=== PATIENT | female | born 1980 | race Caucasian/White ===

== ENCOUNTER → 2021-03-16 14:06 | Outpatient (BNVA) | payer MEDICARE, MEDICAID, SELFPAY | PROVIDERS: PCP Internal Medicine | DX: Z13.89 Encounter for screening for other disorder (principal) | CPT/HCPCS: Q3014 ==

== ENCOUNTER → 2021-09-13 11:46 | Outpatient (BNVA) | payer MEDICARE, MEDICAID, SELFPAY | PROVIDERS: PCP Internal Medicine | DX: R32 Unspecified urinary incontinence (principal) | CPT/HCPCS: Q3014 ==

== ENCOUNTER 2021-09-19 06:09 | Day surgery (SDC) | payer MEDICARE, MEDICAID, SELFPAY ==
--- NOTE | 2021-09-14 14:20 | P.CONAN_ITS ---
Documented by User: Marizol Kumar NP 09/14/21 14:21 HPI - Anesthesia Eval Consult details Narrative: 40yo F for Cystoscopy Botox Injection Last 12/2018 with MAC [facility] Active Problems Active Problems: All Active Problems (Updated 08/01/21 @ 11:32 by Dawn Suazo RN) Urinary incontinence (Acute) Past Medical History Medical History Asthma Ttjwivs-Rddzz-Hsuis disease COVID-19 vaccine series completed Diabetes Hypotonic bladder Kyphosis Scoliosis Status post insertion of nerve stimulator Wheelchair bound Surgical History Surgical History History of pubovaginal sling History of surgery History of surgery Hx of arthroscopy of knee Hx of cystoscopy Hx of hemorrhoidectomy Hx of tonsillectomy Social History Social History Are you a primary child care giver to a significant other at home: Yes (12 y.o. daughter) Do you presently have visiting nurse or other home services: No Patient Tobacco Use Status: Former Tobacco user Quit Date: 2009 Tobacco use type: Cigarette Use of substances other than those prescribed or required for medical reasons: No Are you DNR?: No Advance Directives: No Advance Directives Information Provided: Yes Recently lost weight without trying: No Nutrition Risks: No Nutritional Risk Meds Allergies Allergy/AdvReac Type Severity Reaction Status Date / Time naproxen [NAPROXEN] Allergy Intermediate ASTHMA Verified 09/13/21 11:49 Home Medications Medication Instructions Recorded Confirmed Last Taken Type fluticasone 1 inh INHALATION 08/01/21 Unknown History propionate 250 BID PRN mcg/actuation blister powder for inhalation (Flovent Diskus) metformin 500 mg 500 mg PO BID 08/01/21 Unknown History tablet multivitamin 1 tab PO DAILY 08/01/21 Unknown History solifenacin 10 mg 10 mg PO BID 08/01/21 09/19/21 History tablet albuterol sulfate 0 mcg INHALATION 09/13/21 Unknown History 90 mcg/actuation aerosol inhaler loratadine 10 mg 10 mg PO DAILY 09/13/21 Unknown History tablet omeprazole 20 mg 20 mg PO DAILY 09/13/21 Unknown History capsule,delayed release Exam Exam Date and Time: September 14, 2021 1420 Assessment and Plan Assessment Anesthesia Assessment: Chart Reviewed Documented by User: Catarino Frank 09/19/21 09:13 [facility] Past Medical History Medical History Asthma Hjczquj-Fusqw-Xpjzj disease COVID-19 vaccine series completed Diabetes Hypotonic bladder Kyphosis Scoliosis Status post insertion of nerve stimulator Wheelchair bound Functional capacity: wheelchair bound Family History Family history of problems with anesthesia: No Surgical History Surgical History History of pubovaginal sling History of surgery History of surgery Hx of arthroscopy of knee Hx of cystoscopy Hx of hemorrhoidectomy Hx of tonsillectomy History of Problems with Anesthesia: No Social History Social History Are you a primary child care giver to a significant other at home: Yes (12 y.o. daughter) Do you presently have visiting nurse or other home services: No Patient Tobacco Use Status: Former Tobacco user Quit Date: 2009 Tobacco use type: Cigarette Use of substances other than those prescribed or required for medical reasons: No Are you DNR?: No Advance Directives: No Advance Directives Information Provided: Yes Recently lost weight without trying: No Nutrition Risks: No Nutritional Risk Meds Allergies Allergy/AdvReac Type Severity Reaction Status Date / Time naproxen [NAPROXEN] Allergy Intermediate ASTHMA Verified 09/13/21 11:49 Home Medications Medication Instructions Recorded Confirmed Last Taken Type fluticasone 1 inh INHALATION 08/01/21 Unknown History propionate 250 BID PRN mcg/actuation blister powder for inhalation (Flovent Diskus) metformin 500 mg 500 mg PO BID 08/01/21 Unknown History tablet multivitamin 1 tab PO DAILY 08/01/21 Unknown History solifenacin 10 mg 10 mg PO BID 08/01/21 09/19/21 History tablet albuterol sulfate 0 mcg INHALATION 09/13/21 Unknown History 90 mcg/actuation aerosol inhaler loratadine 10 mg 10 mg PO DAILY 09/13/21 Unknown History tablet omeprazole 20 mg 20 mg PO DAILY 09/13/21 Unknown History capsule,delayed release Exam Airway Mallampati Class: II Neck ROM: Full Loose/Missing/Broken Teeth: Yes Heart: rrr Lungs: bl breath sounds Assessment and Plan Final Anesthetic Review Family History of Problems with Anesthesia: No History of Problems with Anesthesia: No NPO: Yes ASA Class: III Final Preanesthetic Review: Ann Marie Risks/Benef Reviewed Patient Risk: High Procedure Risk: Intermediate Anesthetic Plan Anesthetic Plan: MAC: Disposition: Standard PACU
[2021-09-19 06:16] VITALS: BMI 34.7
[2021-09-19 06:26] LABS: Glucose, Whole Blood 149 mg/dL (60-115)
[2021-09-19 06:31] VITALS: BMI 34.4
[2021-09-19 06:37] VITALS: BP 123/73; PULSE 81; RESP 16; TEMP 36.1; O2SAT 95
[2021-09-19] MEDS: Lactated Ringers 1,000 ML 100 ML IVCONT (06:46)
[2021-09-19 06:59] LABS: UPreg QC Valid YES; Urine Pregnancy NEGATIVE (NEGATIVE)
--- NOTE | 2021-09-19 07:32 | MHC.SHP ---
Pre-Procedural Eval Section A Date of Service: 09/19/21 The patient is an INPATIENT: No Changes since office visit: No Cold of Flu in the past 2 weeks, No New Medical Problems, No Changes in Medication and No Patient answered all questions The History & Physical has been completed within 30 days and I have reviewed it.: Yes Section B Chief Complaint: urinary incontinence Details of Present Illness: Background of chacot-Johana tooth disease. Prior Botox injection with success Relevant Family History (Specify if Yes): No Relevant Social History: None Present Medications: see Short Stay Collaborative assessment Medical History: Significant History History of Previous Operations: Relevant previous surgery/procedure and date(s) Allergies: Allergies Allergy/AdvReac Type Severity Reaction Status Date / Time naproxen [NAPROXEN] Allergy Intermediate ASTHMA Verified 09/13/21 11:49 Review of Systems Sugical H&P ROS: Negative: Constitution, Cardiovascular, Respiratory, Neurological, Psychiatric, Hem-Onc, Allergic/Immunologic, Gastrointestinal, Genitourinary, Musculoskeletal, Integumentary, Endocrine and Eyes/Ears/Nose/Throat Exam Surgical H&P Exam: Normal: HEENT, Normal: Heart, Normal: Lungs, Normal: Extremities, Normal: Abdomen, Normal: Skin and Normal: Neurological Plan Diagnosis/Plan: Unchanged (Cystoscopy, Botox) I have reviewed the history and physical and performed a pertinent physical examination on my patient. No changes have occurred unless specified.
[2021-09-19] MEDS: levoFLOXacin 500 MG TABLET PO (07:36)
[2021-09-19 08:09] VITALS: BP 96/56; PULSE 81; RESP 16; TEMP 36.2; O2SAT 96
[2021-09-19 08:24] VITALS: BP 97/67; PULSE 81; RESP 17; O2SAT 95
[2021-09-19 08:39] VITALS: BP 119/74; PULSE 79; RESP 17; TEMP 36.1; O2SAT 98
--- NOTE | 2021-09-19 09:36 | P.OP_ITS ---
Operative Note Operative Note Date of Service: 09/19/21 Narrative: PreOperative Diagnosis: Overactive bladder with failure of medications Post Operative Diagnosis: Overactive bladder with failure of medications Procedure: Cystoscopy with injection 100 units Botox intra detrusor muscle Surgeon: Dr Gabe Davidson Anesthesia: Sedation Indications for procedure: Is a very pleasant 40-year-old female. Has persistent urgency and frequency. Has failed oral medications. Prior Botox in the bladder before COVID. Had good effect. Has neurogenic bladder is part of Charcot Judith tooth neurologic condition Procedure: After informed consent was verified the patient was brought to the operating room and placed in a supine position. Anesthesia was administered per protocol. Cystoscopy performed with 22 Sur[place]amese cystoscope. Bladder was emptied of urine. Bladder was refilled. Using 100 units of Botox mixed in 10 cc of normal saline injections were placed at the back wall of the bladder. 0.5cc placed at each injection site. Injections were placed in a grid 5 across and for high. Injections were placed from the inferior to superior position. Trabeculations on the bladder wall with targeted for each injection site. Procedure was tolerated well. Patient was extubated and transferred in stable condition to the recovery area. Pathology: None Drains: None
== END 2021-09-19 09:38 | disposition home or self-care (01) ==
PROVIDERS: Nurse Practitioner; PCP Internal Medicine; Visit Provider Urology
PROC: 3E0K8GC Introduction of Other Therapeutic Substance into Genitourinary Tract, Via Natural or Artificial Opening Endoscopic (ICD-10-PCS; CPT 52287; principal; 2021-09-19 07:30)
DX: N32.81 Overactive bladder (principal); N31.2 Flaccid neuropathic bladder, not elsewhere classified; E11.9 Type 2 diabetes mellitus without complications; J45.909 Unspecified asthma, uncomplicated; G60.0 Hereditary motor and sensory neuropathy; Z99.3 Dependence on wheelchair; M41.9 Scoliosis, unspecified; K59.00 Constipation, unspecified; Z79.84 Long term (current) use of oral hypoglycemic drugs; Z79.51 Long term (current) use of inhaled steroids; Z88.8 Allergy status to other drugs, medicaments and biological substances; Z87.891 Personal history of nicotine dependence
CPT/HCPCS: 52287; 81025; 82947; J0585; J1100; J2250; J2405; J3010

== ENCOUNTER → 2021-10-04 09:58 | Outpatient (BNVA) | payer MEDICARE, MEDICAID, SELFPAY | PROVIDERS: PCP Internal Medicine | DX: R32 Unspecified urinary incontinence (principal); E11.9 Type 2 diabetes mellitus without complications | CPT/HCPCS: 51798; 99212 ==

== ENCOUNTER → 2021-10-13 13:48 | Outpatient (BNVA) | payer MEDICARE, MEDICAID, SELFPAY | PROVIDERS: PCP Internal Medicine; Visit Provider Urology | DX: Z13.89 Encounter for screening for other disorder (principal) ==

== ENCOUNTER 2021-11-21 08:14 | Day surgery (SDC) | payer MEDICARE, MEDICAID, SELFPAY ==
[2021-11-15 11:12] VITALS: BMI 34.4
--- NOTE | 2021-11-18 09:52 | HO.ANESPROP2 ---
Documented by User: Marizol Kumar NP 11/18/21 09:53 HPI - Anesthesia Eval Consult details Narrative: 41yo F for Interstim Generator Change with lead change s/p cysto botox 09/2021 with MAC PMF Active Problems Active Problems: All Active Problems (Updated 08/01/21 @ 11:32 by Dawn Suazo RN) Urinary incontinence (Acute) Past Medical History Medical History Asthma Undeqqp-Zocvs-Yggoc disease COVID-19 vaccine series completed Diabetes Hypotonic bladder Kyphosis Scoliosis Status post insertion of nerve stimulator Wheelchair bound Family History Family history of problems with anesthesia: No Surgical History Surgical History (Updated 11/15/21 @ 11:08 by Dawn Suazo RN) History of pubovaginal sling History of surgery History of surgery Hx of arthroscopy of knee Hx of cystoscopy Hx of hemorrhoidectomy Hx of tonsillectomy History of Problems with Anesthesia: No Social History Social History Are you a primary career information specialist to a significant other at home: Yes (daughter (12 y.o)) Do you presently have visiting nurse or other home services: No Patient Tobacco Use Status: Former Tobacco user Quit Date: 2009 Tobacco use type: Cigarette Meds Allergies Allergy/AdvReac Type Severity Reaction Status Date / Time naproxen [NAPROXEN] Allergy Intermediate ASTHMA Verified 10/04/21 10:13 Home Medications Medication Instructions Recorded Confirmed Last Taken Type fluticasone propionate 250 1 inh INHALATION BID PRN 08/01/21 11/15/21 Unknown History mcg/actuation blister powder for inhalation (Flovent Diskus) metformin 500 mg tablet 500 mg PO BID 08/01/21 11/15/21 Unknown History multivitamin 1 tab PO DAILY 08/01/21 11/15/21 Unknown History solifenacin 10 mg tablet 10 mg PO BID 08/01/21 11/15/21 09/19/21 History albuterol sulfate 90 mcg/actuation 90 mcg INHALATION Q4H PRN 09/13/21 11/15/21 Unknown History aerosol inhaler loratadine 10 mg tablet 10 mg PO DAILY 09/13/21 11/15/21 Unknown History omeprazole 20 mg capsule,delayed 20 mg PO DAILY 09/13/21 11/15/21 Unknown History release Exam Exam Date and Time: November 18, 2021 0952 Height,Weight and Vital Signs: Height 5 ft 2 in Weight 85.3 kg Assessment and Plan Assessment Anesthesia Assessment: Chart Reviewed Final Anesthetic Review Family History of Problems with Anesthesia: No History of Problems with Anesthesia: No Documented by User: Catarino Frank MD 11/21/21 17:06 ON LICENSE OF [facility] Past Medical History Medical History Asthma Bxqcnwf-Lhfza-Fhyly disease COVID-19 vaccine series completed Diabetes Hypotonic bladder Kyphosis Scoliosis Status post insertion of nerve stimulator Wheelchair bound Surgical History Surgical History (Updated 11/15/21 @ 11:08 by Dawn Suazo RN) History of pubovaginal sling History of surgery History of surgery Hx of arthroscopy of knee Hx of cystoscopy Hx of hemorrhoidectomy Hx of tonsillectomy Social History Social History Are you a primary career information specialist to a significant other at home: Yes (daughter (12 y.o)) Do you presently have visiting nurse or other home services: No Patient Tobacco Use Status: Former Tobacco user Quit Date: 2009 Tobacco use type: Cigarette Meds Allergies Allergy/AdvReac Type Severity Reaction Status Date / Time naproxen [NAPROXEN] Allergy Intermediate ASTHMA Verified 10/04/21 10:13 Home Medications Medication Instructions Recorded Confirmed Last Taken Type fluticasone propionate 250 1 inh INHALATION BID PRN 08/01/21 11/15/21 Unknown History mcg/actuation blister powder for inhalation (Flovent Diskus) metformin 500 mg tablet 500 mg PO BID 08/01/21 11/15/21 Unknown History multivitamin 1 tab PO DAILY 08/01/21 11/15/21 Unknown History solifenacin 10 mg tablet 10 mg PO BID 08/01/21 11/15/21 09/19/21 History albuterol sulfate 90 mcg/actuation 90 mcg INHALATION Q4H PRN 09/13/21 11/15/21 Unknown History aerosol inhaler loratadine 10 mg tablet 10 mg PO DAILY 09/13/21 11/15/21 Unknown History omeprazole 20 mg capsule,delayed 20 mg PO DAILY 09/13/21 11/15/21 Unknown History release Exam Airway Mallampati Class: II TM Dist: >3cm Neck ROM: Full Loose/Missing/Broken Teeth: Yes Heart: rrr Lungs: bl breath sounds Assessment and Plan Assessment Anesthesia Assessment: Anesthesia Plan Discussed Final Anesthetic Review NPO: Yes ASA Class: III Final Preanesthetic Review: Meds/Allgs Chart Reviewed, Consent Obtained/Reviewed and Anes Risks/Benef Reviewed Patient Risk: Intermediate Procedure Risk: Intermediate Anesthetic Plan Anesthetic Plan: MAC: Disposition: Standard PACU
--- NOTE | ~2021-11-21 | FL_ITS ---
EXAMINATION: XR FLUOROSCOPY WITH IMAGES CLINICAL INFORMATION: InterStim generator change with lead change. COMPARISON: None. TECHNIQUE: Fluoroscopy performed by Dr. Gabe Davidson. Fluoroscopy time: 46.4 seconds Images: 2 FINDINGS: There are stimulator wires overlying the sacrum. A second wire is placed on final image. FL/FL guidance in OR IMPRESSION: Fluoroscopic guidance for stimulator wire manipulation. Please refer to procedural report for further information.
[2021-11-21 08:27] VITALS: BP 121/66; PULSE 91; RESP 16; TEMP 36.2; O2SAT 96
[2021-11-21 08:37] LABS: Glucose, Whole Blood 147 mg/dL (60-115)
[2021-11-21] MEDS: Lactated Ringers 1,000 ML 100 ML IVCONT (08:46)
[2021-11-21 08:48] VITALS: BMI 33.7
[2021-11-21 10:23] LABS: UPreg QC Valid YES; Urine Pregnancy NEGATIVE (NEGATIVE)
--- NOTE | 2021-11-21 11:33 | MHC.SHP ---
Pre-Procedural Eval Section A Date of Service: 11/21/21 The patient is an INPATIENT: No Changes since office visit: No Cold of Flu in the past 2 weeks, No New Medical Problems, No Changes in Medication and No Patient answered all questions The History & Physical has been completed within 30 days and I have reviewed it.: No Section B Chief Complaint: urge incontinence Details of Present Illness: longstanding with InterStim and medication. On device interrogation in office battery no longer functional. She wishes to move ahead with a battery and lead change. Relevant Family History (Specify if Yes): No Relevant Social History: None Present Medications: see Short Stay Collaborative assessment Medical History: Significant History History of Previous Operations: Relevant previous surgery/procedure and date(s) Allergies: Allergies Allergy/AdvReac Type Severity Reaction Status Date / Time naproxen [NAPROXEN] Allergy Intermediate ASTHMA Verified 10/04/21 10:13 Review of Systems Sugical H&P ROS: Negative: Constitution, Cardiovascular, Respiratory, Neurological, Psychiatric, Hem-Onc, Allergic/Immunologic, Gastrointestinal, Genitourinary, Musculoskeletal, Integumentary, Endocrine and Eyes/Ears/Nose/Throat Exam Surgical H&P Exam: Normal: HEENT, Normal: Heart, Normal: Lungs, Normal: Extremities, Normal: Abdomen, Normal: Skin and Normal: Neurological Plan Diagnosis/Plan: Unchanged ( InterStim battery and lead change) I have reviewed the history and physical and performed a pertinent physical examination on my patient. No changes have occurred unless specified.
--- NOTE | 2021-11-21 13:42 | W.PM.OPN ---
Operative Note Operative Note Date of Service: 11/21/21 Narrative: PreOperative Diagnosis: Overactive bladder with urinary urgency and frequency Post Operative Diagnosis: Overactive bladder with urinary urgency and frequency Procedure: 1.) Removal of InterStim lead 2.) Removal of InterStim battery 3.) Placement of InterStim lead 4.) Placement of InterStim battery Surgeon: Dr Gabe Davidson Anesthesia: sedation Indications for procedure: Prior device placement in 2007 with lead revision in 2013. After interrogation in office battery no longer functional. She would like to move ahead with replacement of both the lead and the battery. At the time of initiation of the procedure fluoroscopy was performed. There was seen to be to remnant electrode portions sitting in the right sacral foramina. A fully connected portion was sitting in the S3 and was removed. There was a remnant fragment sitting in S4 which was unable to be removed. Procedure: After informed consent was verified the patient was brought to the operating room. Sedation anesthesia was administered per protocol. The patient was placed in a prone position and prepped and draped in a sterile fashion. Safety pause time-out was performed. Local anesthetic was infiltrated around the initial battery pocket incision on the right lateral superior buttock. Incision was made and taken down till the battery was encountered. The battery pocket was opened and a battery brought out to the skin. Using the C-arm and a snap the lead entering S3 on the right side was targeted. Local anesthetic was infiltrated around the prior incision and incision made through the skin. Using blunt dissection the original lead was isolated and brought up through our skin incision. This was get disconnected from the battery to give us the full lead in the sacral position. The lead was dissected down until we could palpate the transition to the thickened plastic. Using a right angle clamp we were able to fully withdrawal the old lead from its position in the S3 foramen. Using the C-arm in an AP and lateral view the finding needle was introduced into the S3 foramen running from a caudad to chordal direction. Using the physical testing supervisor we could confirm good toe movement and Florence response. The internal introducer from the needle was removed and the control lead placed. The find needle was removed and the dilator sheath introduced. Under fluoroscopic guidance the dilator sheath was advanced till the marker was seen mid point through the sacral bone on the lateral image. The internal cannula from the dilator was removed. The guidewire was removed. The active lead was then introduced through the dilator sheath and advanced so that the 3rd and 4th marked electrodes crossed the internal boundary line of the sacrum. The testing electrode was then hooked up to each of the wire electrodes 0 through 3 and good Florence and toe response is was seen at low amplitude 2.0 amps. This confirmed the clinically relevant position of the live wire. Under live fluoroscopy the introducer sheath was removed deploying the tines of the wire ensuring that the live wire remained in the previously described position. The tunneling device was then used to bridge the distance between the sacral vertical incision and the desired location of the battery pocket. The live wire was placed through the tunneling device and brought out into the battery pocket. The sacral incision was washed with water. A new battery was connected to the live wire and placed into the subcutaneous pocket. The battery was tested and had positive continuous pickling line pickler helper and displayed normal impedance on all 4 channels. The battery pocket had been washed with sterile water prior to placement of the battery. Interrupted 3-0 Vicryl sutures were used to close the defect spaces and bring skin edges together. Running 4-0 Monocryl sutures were used to appose skin edges. Incisions were dressed using skin glue followed by Tegaderm dressing. Patient tolerated procedure well was extubated in operating room transferred in stable condition to the recovery area. CPT full device replacement [id number], [id number], [id number]
[2021-11-21 13:44] VITALS: BP 120/72; PULSE 91; RESP 16; TEMP 36.4; O2SAT 98
[2021-11-21 14:00] VITALS: BP 108/81; PULSE 87; RESP 18; TEMP 36.2; O2SAT 97
== END 2021-11-21 14:26 | disposition home or self-care (01) ==
PROVIDERS: Nurse Practitioner; PCP Internal Medicine; Visit Provider Urology
PROC: (CPT 63685; principal; 2021-11-21 10:00)
DX: N39.41 Urge incontinence (principal); N32.81 Overactive bladder; R35.0 Frequency of micturition; G60.0 Hereditary motor and sensory neuropathy; J45.909 Unspecified asthma, uncomplicated; E11.9 Type 2 diabetes mellitus without complications; Z79.84 Long term (current) use of oral hypoglycemic drugs; Z79.51 Long term (current) use of inhaled steroids; Z87.891 Personal history of nicotine dependence
CPT/HCPCS: 64590; 64561; 81025; 82947; C1767; C1778; C1787; J0690; J1885; J2250; J3010

== ENCOUNTER → 2021-12-09 11:26 | Outpatient (BNVA) | payer MEDICARE, MEDICAID, SELFPAY | PROVIDERS: PCP Internal Medicine; Visit Provider Urology | DX: N32.81 Overactive bladder (principal); N31.2 Flaccid neuropathic bladder, not elsewhere classified; T36.95XD Adverse effect of unspecified systemic antibiotic, subsequent encounter; L27.0 Generalized skin eruption due to drugs and medicaments taken internally | CPT/HCPCS: 99212 ==

== ENCOUNTER → 2022-03-21 12:53 | Outpatient (BNVA) | payer MEDICARE, MEDICAID, SELFPAY | PROVIDERS: PCP Internal Medicine | DX: N31.2 Flaccid neuropathic bladder, not elsewhere classified (principal); N32.81 Overactive bladder | CPT/HCPCS: Q3014 ==

== ENCOUNTER → 2022-05-02 10:51 | Outpatient (BNVA) | payer MEDICARE, MEDICAID, SELFPAY | PROVIDERS: PCP Internal Medicine; Visit Provider Urology | DX: N31.2 Flaccid neuropathic bladder, not elsewhere classified (principal) | CPT/HCPCS: Q3014 ==

== ENCOUNTER 2022-05-15 08:59 | Day surgery (SDC) | payer MEDICARE, MEDICAID, SELFPAY ==
[2022-05-10 10:16] VITALS: BMI 33.7
--- NOTE | 2022-05-12 10:04 | P.CONAN_ITS ---
Documented by User: Marizol Kumar NP 05/12/22 10:06 HPI - Anesthesia Eval Consult details Narrative: 41yo F for Cystoscopy Bladder Botox Injection s/p same 09/2021 with MAC [facility], [facility] Active Problems Active Problems: All Active Problems (Updated 12/09/21 @ 11:58 by Gabe Davidson MD) Urinary incontinence (Acute) Overactive bladder (Acute) Antibiotic-induced allergic rash (Acute) Hypotonic bladder (Acute) Diabetes (Acute) Past Medical History Medical History Asthma Bynlvfc-Yptau-Vrpdr disease COVID-19 vaccine series completed Diabetes Hypotonic bladder Kyphosis Scoliosis Status post insertion of nerve stimulator Wheelchair bound Family History Family history of problems with anesthesia: No Surgical History Surgical History (Updated 05/10/22 @ 10:14 by Dawn Suazo RN) History of pubovaginal sling History of surgery History of surgery History of surgery Hx of arthroscopy of knee Hx of cystoscopy Hx of hemorrhoidectomy Hx of tonsillectomy History of Problems with Anesthesia: No Social History Social History Are you a primary rn urgent care to a significant other at home: Yes (daughter (12 y.o)) Do you presently have visiting nurse or other home services: No Patient Tobacco Use Status: Former Tobacco user Quit Date: 2008 Tobacco use type: Cigarette Meds Allergies Allergy/AdvReac Type Severity Reaction Status Date / Time naproxen [NAPROXEN] Allergy Intermediate ASTHMA Verified 05/02/22 10:52 Home Medications Medication Instructions Recorded Confirmed Last Taken Type fluticasone propionate 250 1 inh inhalation BID PRN Shortness 08/01/21 11/15/21 Unknown History mcg/actuation blister powder for Of Breath inhalation (Flovent Diskus) metformin 500 mg tablet 500 mg PO BID 08/01/21 11/15/21 Unknown History multivitamin 1 tab PO DAILY 08/01/21 11/15/21 Unknown History solifenacin 10 mg tablet 10 mg PO BID 08/01/21 11/15/21 09/19/21 History albuterol sulfate 90 mcg/actuation 90 mcg inhalation Q4H PRN Wheezing 09/13/21 11/15/21 Unknown History aerosol inhaler loratadine 10 mg tablet 10 mg PO DAILY 09/13/21 11/15/21 Unknown History omeprazole 20 mg capsule,delayed 20 mg PO DAILY 09/13/21 11/15/21 Unknown History release cephalexin 500 mg capsule 500 mg PO Q8H 12/09/21 Unknown History prednisone 10 mg tablet mg PO 12/09/21 Unknown History prednisone 20 mg tablet 60 mg PO DAILY 12/09/21 Unknown History albuterol sulfate 2.5 mg/3 mL mg inhalation QID PRN 03/21/22 Unknown History (0.083 %) solution for nebulization fluticasone propionate 110 0 mcg inhalation 03/21/22 Unknown History mcg/actuation HFA aerosol inhaler semaglutide 0.25 mg or 0.5 mg (2 mg subcut 03/21/22 Unknown History mg/1.5 mL) subcutaneous pen injector (Ozempic) sumatriptan succinate 100 mg tablet 100 mg PO DIRECTED 05/02/22 Unknown History Exam Exam Date and Time: May 12, 2022 1004 Height,Weight and Vital Signs: Height 5 ft 2 in Weight 83.8 kg Assessment and Plan Assessment Anesthesia Assessment: Chart Reviewed Final Anesthetic Review Family History of Problems with Anesthesia: No History of Problems with Anesthesia: No Documented by User: Catarino Frank MD 05/15/22 18:39 [facility], [facility] Past Medical History Medical History Asthma Jpfgasa-Javow-Wojnz disease COVID-19 vaccine series completed Diabetes Hypotonic bladder Kyphosis Scoliosis Status post insertion of nerve stimulator Wheelchair bound Functional capacity: wheelchair bound Surgical History Surgical History (Updated 05/10/22 @ 10:14 by Dawn Suazo RN) History of pubovaginal sling History of surgery History of surgery History of surgery Hx of arthroscopy of knee Hx of cystoscopy Hx of hemorrhoidectomy Hx of tonsillectomy Social History Social History Are you a primary rn urgent care to a significant other at home: Yes (daughter (12 y.o)) Do you presently have visiting nurse or other home services: No Patient Tobacco Use Status: Former Tobacco user Quit Date: 2008 Tobacco use type: Cigarette Meds Allergies Allergy/AdvReac Type Severity Reaction Status Date / Time naproxen [NAPROXEN] Allergy Intermediate ASTHMA Verified 05/02/22 10:52 Home Medications Medication Instructions Recorded Confirmed Last Taken Type fluticasone propionate 250 1 inh inhalation BID PRN Shortness 08/01/21 11/15/21 Unknown History mcg/actuation blister powder for Of Breath inhalation (Flovent Diskus) metformin 500 mg tablet 500 mg PO BID 08/01/21 11/15/21 Unknown History multivitamin 1 tab PO DAILY 08/01/21 11/15/21 Unknown History solifenacin 10 mg tablet 10 mg PO BID 08/01/21 11/15/21 09/19/21 History albuterol sulfate 90 mcg/actuation 90 mcg inhalation Q4H PRN Wheezing 09/13/21 11/15/21 Unknown History aerosol inhaler loratadine 10 mg tablet 10 mg PO DAILY 09/13/21 11/15/21 Unknown History omeprazole 20 mg capsule,delayed 20 mg PO DAILY 09/13/21 11/15/21 Unknown History release cephalexin 500 mg capsule 500 mg PO Q8H 12/09/21 Unknown History prednisone 10 mg tablet mg PO 12/09/21 Unknown History prednisone 20 mg tablet 60 mg PO DAILY 12/09/21 Unknown History albuterol sulfate 2.5 mg/3 mL mg inhalation QID PRN 03/21/22 Unknown History (0.083 %) solution for nebulization fluticasone propionate 110 0 mcg inhalation 03/21/22 Unknown History mcg/actuation HFA aerosol inhaler semaglutide 0.25 mg or 0.5 mg (2 mg subcut 03/21/22 Unknown History mg/1.5 mL) subcutaneous pen injector (Ozempic) sumatriptan succinate 100 mg tablet 100 mg PO DIRECTED 05/02/22 Unknown History Exam Airway Mallampati Class: III Neck ROM: Full Loose/Missing/Broken Teeth: Yes (Poor dentition ) Heart: S1,S2 Lungs: b/l breath sounds Assessment and Plan Assessment Anesthesia Assessment: Anesthesia Plan Discussed Final Anesthetic Review NPO: Yes ASA Class: III Final Preanesthetic Review: Meds/Allgs Chart Reviewed, Consent Obtained/Reviewed and Anes Risks/Benef Reviewed Patient Risk: Intermediate Procedure Risk: Intermediate Anesthetic Plan Anesthetic Plan: MAC: Disposition: Standard PACU
[2022-05-15 09:41] LABS: UPreg QC Valid YES
[2022-05-15 09:43] LABS: Urine Pregnancy NEGATIVE (NEGATIVE)
[2022-05-15 09:47] VITALS: BP 120/76; PULSE 86; RESP 18; TEMP 36.4; O2SAT 96; BMI 36.0
[2022-05-15 09:58] LABS: Glucose, Whole Blood 128 mg/dL (60-115)
[2022-05-15] MEDS: Lactated Ringers 1,000 ML 100 ML IVCONT (10:17)
[2022-05-15] MEDS: Acetaminophen 325 MG TABLET 650 MG PO (10:25)
--- NOTE | 2022-05-15 11:08 | MHC.SHP ---
Pre-Procedural Eval Section A Date of Service: 05/15/22 The patient is an INPATIENT: No Changes since office visit: No Cold of Flu in the past 2 weeks, No New Medical Problems, No Changes in Medication and No Patient answered all questions The History & Physical has been completed within 30 days and I have reviewed it.: Yes Section B Chief Complaint: Unspecified urinary incontinence Details of Present Illness: Terfbiq-Pmddn-Zzgyc disease overactive bladder Botox injection Allergies: Allergies Allergy/AdvReac Type Severity Reaction Status Date / Time naproxen [NAPROXEN] Allergy Intermediate ASTHMA Verified 05/02/22 10:52 Plan Diagnosis/Plan: Unchanged (Cystoscopy, Botox injection 100 units) I have reviewed the history and physical and performed a pertinent physical examination on my patient. No changes have occurred unless specified.
--- NOTE | 2022-05-15 11:37 | P.OP_ITS ---
Operative Note Operative Note Date of Service: 05/15/22 Narrative: PreOperative Diagnosis: Overactive bladder with failure of medications Post Operative Diagnosis: Overactive bladder with failure of medications Procedure: Cystoscopy with injection 100 units Botox intra detrusor muscle Surgeon: Dr Gabe Davidson Anesthesia: Sedation Indications for procedure: Is a very pleasant 41-year-old female. Has persistent urgency and frequency. Has failed oral medications. At office cystoscopy has effective emptying with minimal urethral rotation on cough. For cystoscopy and Botox injection. Is aware of the risks and benefits particularly related to urinary retention and possible infection. Background Qbsdzfg-Nqjpj-Iwryr disease Procedure: After informed consent was verified the patient was brought to the operating room and placed in a supine position. Anesthesia was administered per protocol. Cystoscopy performed with 22 Lithuanian cystoscope. Bladder was emptied of urine. Bladder was refilled. Using 100 units of Botox mixed in 10 cc of normal saline injections were placed at the back wall of the bladder. 0.5cc placed at each injection site. Injections were placed in a grid 5 across and for high. Injections were placed from the inferior to superior position. Trabeculations on the bladder wall with targeted for each injection site. Procedure was tolerated well. Patient was extubated and transferred in stable condition to the recovery area. Pathology: None Drains: None
[2022-05-15 11:47] VITALS: BP 94/66; PULSE 89; RESP 15; TEMP 36.4; O2SAT 97
[2022-05-15] MEDS: Phenazopyridine HCL 100 MG TABLET PO (11:51)
[2022-05-15 12:02] VITALS: BP 115/66; PULSE 86; RESP 16; TEMP 36.3; O2SAT 96
== END 2022-05-15 12:51 | disposition home or self-care (01) ==
PROVIDERS: Nurse Practitioner; PCP Internal Medicine; Visit Provider Urology
PROC: 3E0K8GC Introduction of Other Therapeutic Substance into Genitourinary Tract, Via Natural or Artificial Opening Endoscopic (ICD-10-PCS; CPT 52287; principal; 2022-05-15 10:00)
DX: R32 Unspecified urinary incontinence (principal); N32.81 Overactive bladder; N31.2 Flaccid neuropathic bladder, not elsewhere classified; R39.15 Urgency of urination; R35.0 Frequency of micturition; Z96.82 Presence of neurostimulator; E11.9 Type 2 diabetes mellitus without complications; J45.909 Unspecified asthma, uncomplicated; Z79.899 Other long term (current) drug therapy; Z88.2 Allergy status to sulfonamides; Z88.8 Allergy status to other drugs, medicaments and biological substances; Z99.3 Dependence on wheelchair; Z87.891 Personal history of nicotine dependence
CPT/HCPCS: 52287; 81025; 82947; J0585; J1956; J2250; J3010

== ENCOUNTER → 2022-12-22 09:56 | Outpatient (BNVA) | payer MEDICARE, MEDICAID, SELFPAY | PROVIDERS: PCP Internal Medicine; Visit Provider Urology | DX: N32.81 Overactive bladder (principal); N31.8 Other neuromuscular dysfunction of bladder | CPT/HCPCS: 51798; 99212 ==

== ENCOUNTER 2023-01-16 05:54 | Day surgery (SDC) | payer MEDICARE, MEDICAID, SELFPAY ==
--- NOTE | 2023-01-12 10:29 | P.CONAN_ITS ---
HPI - Anesthesia Eval Consult details Narrative: 42yo F for Cystoscopy Botox Injection s/p same 04/2022 with [facility] Active Problems Active Problems: All Active Problems (Updated 12/09/21 @ 11:58 by Gabe Davidson MD) Urinary incontinence (Acute) Overactive bladder (Acute) Antibiotic-induced allergic rash (Acute) Hypotonic bladder (Acute) Diabetes (Acute) Past Medical History Medical History (Updated 01/23/23 @ 09:48 by Dawn Suazo, BRANDI) Asthma Qiorqxq-Ehdwb-Zzehj disease COVID-19 vaccine series completed Diabetes History of COVID-19 Hypotonic bladder Kyphosis Scoliosis Wheelchair bound Family History Family history of problems with anesthesia: No Surgical History Surgical History (Updated 01/23/23 @ 09:59 by Dawn Suazo RN) History of pubovaginal sling History of surgery History of surgery History of surgery Hx of arthroscopy of knee Hx of cystoscopy Hx of hemorrhoidectomy Hx of tonsillectomy Status post insertion of nerve stimulator History of Problems with Anesthesia: No Social History Social History Are you a primary manager care management to a significant other at home: Yes (daughter (12 y.o)) Do you presently have visiting nurse or other home services: No Patient Tobacco Use Status: Former Tobacco user Quit Date: 2008 Tobacco use type: Cigarette Use of substances other than those prescribed or required for medical reasons: No Are you DNR?: No Advance Directives: No Advance Directives Information Provided: Yes Recently lost weight without trying: No How much weight loss: 14-23 pounds Nutrition Risks: No Nutritional Risk Meds Allergies Allergy/AdvReac Type Severity Reaction Status Date / Time Sulfa (Sulfonamide Allergy Severe Hives Verified 01/16/23 07:26 Antibiotics) naproxen [NAPROXEN] Allergy Intermediate ASTHMA Verified 01/16/23 07:26 bactrim Allergy Severe Hives Uncoded 01/16/23 07:26 Home Medications Medication Instructions Recorded Confirmed Last Taken Type multivitamin 1 tab PO DAILY 08/01/21 11/15/21 Unknown History solifenacin 10 mg tablet 10 mg PO BID 08/01/21 01/23/23 01/25/23 History albuterol sulfate 90 mcg/actuation 90 mcg inhalation Q4H PRN Wheezing 09/13/21 01/23/23 Unknown History aerosol inhaler omeprazole 20 mg capsule,delayed 20 mg PO DAILY 09/13/21 01/23/23 Unknown History release cephalexin 500 mg capsule 500 mg PO Q8H 12/09/21 Unknown History albuterol sulfate 2.5 mg/3 mL 2.5 mg inhalation QID PRN 03/21/22 01/23/23 Unknown History (0.083 %) solution for nebulization Shortness Of Breath fluticasone propionate 110 110 mcg inhalation BID 03/21/22 01/23/23 Unknown History mcg/actuation HFA aerosol inhaler semaglutide 0.25 mg or 0.5 mg (2 0.25 mg subcut QWEEK 03/21/22 01/23/23 Unknown History mg/1.5 mL) subcutaneous pen injector (Ozempic) sumatriptan succinate 100 mg tablet 100 mg PO DIRECTED 05/02/22 01/23/23 Unknown History cetirizine 10 mg tablet 10 mg PO DAILY 01/23/23 01/23/23 Unknown History fluticasone propionate 50 1 spray intranasal BID 01/23/23 01/23/23 Unknown History mcg/actuation nasal spray,suspension gabapentin 100 mg capsule 100 mg PO Q8H PRN Pain 01/23/23 01/23/23 Unknown History Exam Exam Date and Time: January 12, 2023 1029 Assessment and Plan Assessment Anesthesia Assessment: Chart Reviewed Final Anesthetic Review Family History of Problems with Anesthesia: No History of Problems with Anesthesia: No
[2023-01-16 06:11] VITALS: BMI 35.9
[2023-01-16] MEDS: Lactated Ringers 1,000 ML 100 ML IVCONT (06:36)
[2023-01-16 06:38] VITALS: BP 134/77; PULSE 81; RESP 18; TEMP 36.2; O2SAT 98; BMI 34.4
[2023-01-16 06:49] LABS: Glucose, Whole Blood 129 mg/dL (60-115)
[2023-01-16 07:21] LABS: UPreg QC Valid YES; Urine Pregnancy NEGATIVE (NEGATIVE)
--- NOTE | 2023-01-16 07:39 | MHC.SHP ---
Pre-Procedural Eval Section A Date of Service: 01/16/23 The patient is an INPATIENT: No Section B Chief Complaint: Overactive bladder Allergies: Allergies Allergy/AdvReac Type Severity Reaction Status Date / Time Sulfa (Sulfonamide Allergy Severe Hives Verified 01/16/23 07:26 Antibiotics) naproxen [NAPROXEN] Allergy Intermediate ASTHMA Verified 01/16/23 07:26 bactrim Allergy Severe Hives Uncoded 01/16/23 07:26 Plan Diagnosis/Plan: Unchanged I have reviewed the history and physical and performed a pertinent physical examination on my patient. No changes have occurred unless specified. Cystoscopy Bladder Botox injection Time Spent With Patient Time: Total time managing care of this patient today ____ minutes.
--- NOTE | 2023-01-16 07:49 | HO.ANESPROP2 ---
[facility] Active Problems Active Problems: All Active Problems (Updated 01/16/23 @ 00:49 by uJni Simpson MD) Spastic neurogenic bladder (Acute) Urinary incontinence (Acute) Overactive bladder (Acute) Antibiotic-induced allergic rash (Acute) Hypotonic bladder (Acute) Diabetes (Acute) Past Medical History Medical History Asthma Aatxyne-Qsyai-Kqdtn disease COVID-19 vaccine series completed Diabetes Hypotonic bladder Kyphosis Scoliosis Wheelchair bound Functional capacity: wheelchair bound Family History Family history of problems with anesthesia: No Surgical History Surgical History History of pubovaginal sling History of surgery History of surgery History of surgery Hx of arthroscopy of knee Hx of cystoscopy Hx of hemorrhoidectomy Hx of tonsillectomy Status post insertion of nerve stimulator History of Problems with Anesthesia: No Social History Social History Are you a primary child care aide to a significant other at home: Yes (daughter (12 y.o)) Do you presently have visiting nurse or other home services: No Patient Tobacco Use Status: Former Tobacco user Quit Date: 2008 Tobacco use type: Cigarette Are you DNR?: No Advance Directives: No Advance Directives Information Provided: Yes Nutrition Risks: No Nutritional Risk FDLMP: years ago Meds Allergies Allergy/AdvReac Type Severity Reaction Status Date / Time Sulfa (Sulfonamide Allergy Severe Hives Verified 01/16/23 07:26 Antibiotics) naproxen [NAPROXEN] Allergy Intermediate ASTHMA Verified 01/16/23 07:26 bactrim Allergy Severe Hives Uncoded 01/16/23 07:26 Active Medications: Current Medications Lactated Ringer's (Lr) 1,000 mls @ 100 mls/hr IVCONT .Q10H KYM Last Admin: 01/16/23 06:36 Dose: 100 mls/hr Home Medications Medication Instructions Recorded Confirmed Last Taken Type fluticasone propionate 250 1 inh inhalation BID PRN Shortness 08/01/21 11/15/21 Unknown History mcg/actuation blister powder for Of Breath inhalation (Flovent Diskus) metformin 500 mg tablet 500 mg PO BID 08/01/21 11/15/21 Unknown History multivitamin 1 tab PO DAILY 08/01/21 11/15/21 Unknown History solifenacin 10 mg tablet 10 mg PO BID 08/01/21 11/15/21 01/16/23 History albuterol sulfate 90 mcg/actuation 90 mcg inhalation Q4H PRN Wheezing 09/13/21 11/15/21 Unknown History aerosol inhaler loratadine 10 mg tablet 10 mg PO DAILY 09/13/21 11/15/21 Unknown History omeprazole 20 mg capsule,delayed 20 mg PO DAILY 09/13/21 11/15/21 Unknown History release cephalexin 500 mg capsule 500 mg PO Q8H 12/09/21 Unknown History prednisone 10 mg tablet mg PO 12/09/21 Unknown History prednisone 20 mg tablet 60 mg PO DAILY 12/09/21 Unknown History albuterol sulfate 2.5 mg/3 mL mg inhalation QID PRN 03/21/22 Unknown History (0.083 %) solution for nebulization fluticasone propionate 110 0 mcg inhalation 03/21/22 Unknown History mcg/actuation HFA aerosol inhaler semaglutide 0.25 mg or 0.5 mg (2 mg subcut 03/21/22 Unknown History mg/1.5 mL) subcutaneous pen injector (Ozempic) sumatriptan succinate 100 mg tablet 100 mg PO DIRECTED 05/02/22 Unknown History Exam Exam Date and Time: January 16, 2023 0749 Height,Weight and Vital Signs: Height 5 ft 1 in Weight 82.7 kg Last Vital Signs Temp 97.2 F 01/16/23 06:38 Pulse 81 01/16/23 06:38 Resp 18 01/16/23 06:38 BP 134/77 01/16/23 06:38 Pulse Ox 98 01/16/23 06:38 O2 Del Method Room Air 01/16/23 06:38 Pertinent Lab Results Pertinent Lab Results: Laboratory Tests 01/16/23 01/16/23 06:00 06:23 POC Glucose 129 H Urine Test NEGATIVE Airway Mallampati Class: II TM Dist: >3cm Neck ROM: Full Heart: RRR Lungs: CTA Assessment and Plan Final Anesthetic Review Family History of Problems with Anesthesia: No History of Problems with Anesthesia: No ASA Class: III Final Preanesthetic Review: Meds/Allgs Chart Reviewed, Consent Obtained/Reviewed and Anes Risks/Benef Reviewed Patient Risk: Low Procedure Risk: Low Anesthetic Plan Anesthetic Plan: GA Disposition: Standard PACU
[2023-01-16 08:10] VITALS: BP 89/58; PULSE 82; RESP 16; TEMP 36.3; O2SAT 95
[2023-01-16 08:15] VITALS: BP 101/56; PULSE 80; RESP 16; O2SAT 94
--- NOTE | 2023-01-16 08:15 | W.PM.OPN ---
Operative Note Operative Note Date of Service: 01/16/23 Narrative: PREOP DIAGNOSIS: Neurogenic bladder POSTOP DIAGNOSIS: Neurogenic bladder PROCEDURE: CYSTOSCOPY, BLADDER BOTOX INJECTION 100 UNITS SURGEON: Juni Simpson MD ANESTHESIA: General Indications: Gregoria is a 42-year-old patient with Pnctoos-Ucgus-Yfayh disease and urinary incontinence secondary to spastic neurogenic bladder. Details of procedure: The patient was brought into the operating room placed on the OR table in supine position. Levaquin 500 mg IV. General anesthesia was administered. The patient was repositioned into lithotomy position, prepped and draped in the usual sterile fashion. Time-out was done per protocol. A 22 fr cystoscope was placed transurethrally into the bladder. Urine was sent for culture. The right and left ureteral orifices were visualized. There were moderate trabeculations noted. There were no suspicious bladder lesions seen. The Botox 100 units was mixed with 10 cc of normal saline and injected transurethrally 1/2 cc to 1 cc per injection into the posterior bladder wall. The cystoscope was removed. 2% lidocaine urojet was passed transurethrally into the bladder. The patient was brought out of anesthesia and taken to recovery in stable condition. Complications: None Drains: none
[2023-01-16 08:20] VITALS: BP 106/62; PULSE 79; RESP 16; O2SAT 94
[2023-01-16 08:25] VITALS: BP 115/77; PULSE 86; RESP 18; TEMP 36.6; O2SAT 96
--- NOTE | 2023-01-16 08:30 | HO.POSTANES ---
Post Anesthesia Evaluation Post Anesthesia Evaluation Date of Service: 01/16/23 Vital Signs: Vital Signs Temp Pulse Resp BP Pulse Ox O2 Del Method 01/16/23 08:25 97.8 F 86 18 115/77 96 Room Air 01/16/23 08:20 79 16 106/62 94 Room Air 01/16/23 08:15 80 16 101/56 L 94 Room Air 01/16/23 08:10 97.3 F 82 16 89/58 L 95 Room Air 01/16/23 06:38 97.2 F 81 18 134/77 98 Room Air Anesthesia: General LMA Mental Status: Awake Pain Control: Satisfactory Nausea/Vomiting: None Hydration: Adequate Anesthesia-Related Issues: No Anes. Related Issues
[2023-01-16 08:40] VITALS: BP 114/68; PULSE 83; RESP 18; TEMP 36.2; O2SAT 95
== END 2023-01-16 09:28 | disposition home or self-care (01) ==
PROVIDERS: Nurse Practitioner; PCP Physician Assistant Medical; Visit Provider Urology
PROC: 3E0K8GC Introduction of Other Therapeutic Substance into Genitourinary Tract, Via Natural or Artificial Opening Endoscopic (ICD-10-PCS; CPT 52287; principal; 2023-01-16 07:30)
DX: N32.81 Overactive bladder (principal); N31.8 Other neuromuscular dysfunction of bladder; E11.9 Type 2 diabetes mellitus without complications; R32 Unspecified urinary incontinence; G60.0 Hereditary motor and sensory neuropathy; J45.909 Unspecified asthma, uncomplicated; Z79.84 Long term (current) use of oral hypoglycemic drugs; Z79.899 Other long term (current) drug therapy; Z88.1 Allergy status to other antibiotic agents; Z88.2 Allergy status to sulfonamides; Z99.3 Dependence on wheelchair; Z87.891 Personal history of nicotine dependence; Z79.51 Long term (current) use of inhaled steroids
CPT/HCPCS: 52287; 81025; 82947; 87086; J0585; J1956; J2250; J3010

== ENCOUNTER 2023-01-25 10:29 | Day surgery (SDC) | payer MEDICARE, MEDICAID, SELFPAY ==
[2023-01-23 09:50] VITALS: BMI 33.8
[2023-01-25] VITALS (10 sets, daily range): BP systolic 88–135; BP diastolic 54–91; PULSE 72–90; RESP 16; TEMP 36.6–36.8; O2SAT 96–100
--- NOTE | 2023-01-25 11:50 | HO.ANESPROP2 ---
Documented by User: Marizol Kumar NP 01/24/23 10:44 HPI - Anesthesia Eval Consult details Narrative: 42yo F for Left Lateral rectus Eye Muscle Recession,Medial rectus Resection,Right medial rectus recession PCP cleared s/p cysto hydrodistention 12/2022 with GA-LMA 4 PMFSH Active Problems Active Problems: All Active Problems (Updated 01/23/23 @ 09:48 by Dawn Suazo, BRANDI) Urinary incontinence (Acute) Overactive bladder (Acute) Antibiotic-induced allergic rash (Acute) Spastic neurogenic bladder (Acute) Hypotonic bladder (Acute) Diabetes (Acute) Past Medical History Medical History (Updated 01/23/23 @ 09:48 by Dawn Suazo RN) Asthma Iooeedi-Dvtbl-Qmjms disease COVID-19 vaccine series completed Diabetes History of COVID-19 Hypotonic bladder Kyphosis Scoliosis Wheelchair bound Family History Family history of problems with anesthesia: No Surgical History Surgical History (Updated 01/23/23 @ 09:59 by Dawn Suazo RN) History of pubovaginal sling History of surgery History of surgery History of surgery Hx of arthroscopy of knee Hx of cystoscopy Hx of hemorrhoidectomy Hx of tonsillectomy Status post insertion of nerve stimulator History of Problems with Anesthesia: No Social History Social History Are you a primary neonatal intensive care unit nurse to a significant other at home: Yes (daughter (12 y.o)) Do you presently have visiting nurse or other home services: No Patient Tobacco Use Status: Former Tobacco user Quit Date: 2008 Tobacco use type: Cigarette Use of substances other than those prescribed or required for medical reasons: No Are you DNR?: No Advance Directives: No Advance Directives Information Provided: Yes Recently lost weight without trying: No How much weight loss: 14-23 pounds Nutrition Risks: No Nutritional Risk Meds Allergies Allergy/AdvReac Type Severity Reaction Status Date / Time Sulfa (Sulfonamide Allergy Severe Hives Verified 01/16/23 07:26 Antibiotics) naproxen [NAPROXEN] Allergy Intermediate ASTHMA Verified 01/16/23 07:26 bactrim Allergy Severe Hives Uncoded 01/16/23 07:26 Home Medications Medication Instructions Recorded Confirmed Last Taken Type multivitamin 1 tab PO DAILY 08/01/21 11/15/21 Unknown History solifenacin 10 mg tablet 10 mg PO BID 08/01/21 01/23/23 01/25/23 History albuterol sulfate 90 mcg/actuation 90 mcg inhalation Q4H PRN Wheezing 09/13/21 01/23/23 Unknown History aerosol inhaler omeprazole 20 mg capsule,delayed 20 mg PO DAILY 09/13/21 01/23/23 Unknown History release cephalexin 500 mg capsule 500 mg PO Q8H 12/09/21 Unknown History albuterol sulfate 2.5 mg/3 mL 2.5 mg inhalation QID PRN 03/21/22 01/23/23 Unknown History (0.083 %) solution for nebulization Shortness Of Breath fluticasone propionate 110 110 mcg inhalation BID 03/21/22 01/23/23 Unknown History mcg/actuation HFA aerosol inhaler semaglutide 0.25 mg or 0.5 mg (2 0.25 mg subcut QWEEK 03/21/22 01/23/23 Unknown History mg/1.5 mL) subcutaneous pen injector ([employer]) sumatriptan succinate 100 mg tablet 100 mg PO DIRECTED 05/02/22 01/23/23 Unknown History cetirizine 10 mg tablet 10 mg PO DAILY 01/23/23 01/23/23 Unknown History fluticasone propionate 50 1 spray intranasal BID 01/23/23 01/23/23 Unknown History mcg/actuation nasal spray,suspension gabapentin 100 mg capsule 100 mg PO Q8H PRN Pain 01/23/23 01/23/23 Unknown History Exam Exam Date and Time: January 24, 2023 1029 Height,Weight and Vital Signs: Height 5 ft 1 in Weight 81.193 kg Assessment and Plan Assessment Anesthesia Assessment: Chart Reviewed Final Anesthetic Review Family History of Problems with Anesthesia: No History of Problems with Anesthesia: No Documented by User: Janice Connolly DO 01/25/23 11:59 HPI - Anesthesia Eval Consult details Narrative: 42yo F for Left Lateral rectus Eye Muscle Recession,Medial rectus Resection,Right medial rectus recession PCP cleared s/p cysto hydrodistention 12/2022 with GA-LMA 4 01/25/23: patient unable to give urine sample for HCG. Has not had a menstrual cycle in 10 years. POC 112. [facility] Past Medical History Medical History (Updated 01/23/23 @ 09:48 by Dawn Suazo RN) Asthma Hyvtxey-Ucoxu-Fzmfm disease COVID-19 vaccine series completed Diabetes History of COVID-19 Hypotonic bladder Kyphosis Scoliosis Wheelchair bound Surgical History Surgical History (Updated 01/23/23 @ 09:59 by Dawn Suazo RN) History of pubovaginal sling History of surgery History of surgery History of surgery Hx of arthroscopy of knee Hx of cystoscopy Hx of hemorrhoidectomy Hx of tonsillectomy Status post insertion of nerve stimulator History of Problems with Anesthesia: No Social History Social History Are you a primary neonatal intensive care unit nurse to a significant other at home: Yes (daughter (12 y.o)) Do you presently have visiting nurse or other home services: No Patient Tobacco Use Status: Former Tobacco user Quit Date: 2008 Tobacco use type: Cigarette Use of substances other than those prescribed or required for medical reasons: No Are you DNR?: No Advance Directives: No Advance Directives Information Provided: Yes Recently lost weight without trying: No How much weight loss: 14-23 pounds Nutrition Risks: No Nutritional Risk Meds Allergies Allergy/AdvReac Type Severity Reaction Status Date / Time Sulfa (Sulfonamide Allergy Severe Hives Verified 01/16/23 07:26 Antibiotics) naproxen [NAPROXEN] Allergy Intermediate ASTHMA Verified 01/16/23 07:26 bactrim Allergy Severe Hives Uncoded 01/16/23 07:26 Home Medications Medication Instructions Recorded Confirmed Last Taken Type multivitamin 1 tab PO DAILY 08/01/21 11/15/21 Unknown History solifenacin 10 mg tablet 10 mg PO BID 08/01/21 01/23/23 01/25/23 History albuterol sulfate 90 mcg/actuation 90 mcg inhalation Q4H PRN Wheezing 09/13/21 01/23/23 Unknown History aerosol inhaler omeprazole 20 mg capsule,delayed 20 mg PO DAILY 09/13/21 01/23/23 Unknown History release cephalexin 500 mg capsule 500 mg PO Q8H 12/09/21 Unknown History albuterol sulfate 2.5 mg/3 mL 2.5 mg inhalation QID PRN 03/21/22 01/23/23 Unknown History (0.083 %) solution for nebulization Shortness Of Breath fluticasone propionate 110 110 mcg inhalation BID 03/21/22 01/23/23 Unknown History mcg/actuation HFA aerosol inhaler semaglutide 0.25 mg or 0.5 mg (2 0.25 mg subcut QWEEK 03/21/22 01/23/23 Unknown History mg/1.5 mL) subcutaneous pen injector ([employer]) sumatriptan succinate 100 mg tablet 100 mg PO DIRECTED 05/02/22 01/23/23 Unknown History cetirizine 10 mg tablet 10 mg PO DAILY 01/23/23 01/23/23 Unknown History fluticasone propionate 50 1 spray intranasal BID 01/23/23 01/23/23 Unknown History mcg/actuation nasal spray,suspension gabapentin 100 mg capsule 100 mg PO Q8H PRN Pain 01/23/23 01/23/23 Unknown History Exam Exam Date and Time: January 25, 2023 115 Height,Weight and Vital Signs: Height 5 ft 1 in Weight 81.193 kg Vital Signs Temperature 98.2 F 01/25/23 11:18 Pulse Rate 90 01/25/23 11:18 Respiratory Rate 16 01/25/23 11:18 Blood Pressure 117/70 01/25/23 11:18 Pulse Oximetry 96 01/25/23 11:18 Oxygen Delivery Method Room Air 01/25/23 11:18 Temperature 98.2 F 01/25/23 11:18 Pulse Rate 90 01/25/23 11:18 Respiratory Rate 16 01/25/23 11:18 Blood Pressure 117/70 01/25/23 11:18 Pulse Oximetry 96 01/25/23 11:18 Oxygen Delivery Method Room Air 01/25/23 11:18 Airway Mallampati Class: II TM Dist: <=3cm Neck ROM: Limited Loose/Missing/Broken Teeth: No Heart: S1S2 Lungs: CTAB Assessment and Plan Assessment Anesthesia Assessment: Anesthesia Plan Discussed Final Anesthetic Review History of Problems with Anesthesia: No NPO: Yes ASA Class: III Final Preanesthetic Review: No Changes in Pt Med Stat, Meds/Allgs Chart Reviewed, Consent Obtained/Reviewed and Anes Risks/Benef Reviewed Patient Risk: Intermediate Procedure Risk: Low Anesthetic Plan Anesthetic Plan: GA and Agree w/ Assess. and Plan Disposition: Standard PACU
[2023-01-25] MEDS: Lactated Ringers 1,000 ML 100 ML IVCONT (11:53)
--- NOTE | 2023-01-25 11:56 | PC.NURSE ---
patient hasnt had a period in over ten years. early menopause. unable to void on bed hagan. md harrell aware. no need for a urine sample. also patient states she isnt sexually active.
[2023-01-25 12:00] LABS: Glucose, Whole Blood 112 mg/dL (60-115)
--- NOTE | 2023-01-25 15:37 | P.OPHTHAL_ITS ---
Ophthalmology Operative Note Date of Service: 01/25/23 Narrative: Diagnosis exotropia. Procedures resection of right medial rectus muscle 8 mm and resection of left medial rectus muscle [address] Patel anesthesia general complications none. The patient was brought to the operating room placed under general anesthesia. The eyes were prepped and draped in the usual sterile ophthalmic fashion. A lid speculum was placed in the right eye and an incision was made at bare sclera in the inferonasal fornix. The medial rectus muscle was hooked and dissected free of its overlying fascial attachments. It was grasped at the insertion with a [place] muscle clamp and an 8 mm resection was marked off with cautery. The resection point was secured with a double- armed Vicryl suture and the distal muscle resected. The resection point was then drawn forward to the original insertion. Conjunctiva was closed with interrupted Vicryl sutures. An identical procedure was then performed on the left eye with the exception that a 7 mm resection was carried out. The patient was then awoken from general anesthesia and discharged to postoperative recovery in good condition.
== END 2023-01-25 15:31 | disposition home or self-care (01) ==
PROVIDERS: PCP Physician Assistant Medical; Visit Provider Ophthalmology
PROC: (CPT 67311; principal; 2023-01-25 12:00)
DX: H50.112 Monocular exotropia, left eye (principal); G60.0 Hereditary motor and sensory neuropathy; J45.20 Mild intermittent asthma, uncomplicated; N31.2 Flaccid neuropathic bladder, not elsewhere classified; G43.009 Migraine without aura, not intractable, without status migrainosus; Z79.84 Long term (current) use of oral hypoglycemic drugs; Z79.51 Long term (current) use of inhaled steroids; Z99.3 Dependence on wheelchair; Z88.1 Allergy status to other antibiotic agents; Z87.891 Personal history of nicotine dependence
CPT/HCPCS: 67311; 82947; J0131; J1100; J2250; J2370; J2405; J3010

== ENCOUNTER 2023-02-05 11:51 | Outpatient (AMB) | payer MEDICARE, MEDICAID, SELFPAY ==
--- NOTE | 2023-02-05 11:52 | MHC.OFFVIS ---
Intake Intake Visit Reasons: 3w post op Intake Note: Patient presents today via telephone for a follow-up on 3w post op [place] Pinion Adjuster Required: No Accompanied by: Self / Same As Patient Allergies Sulfa (Sulfonamide Antibiotics) Allergy (Severe, Verified 02/05/23 11:53) Hives naproxen [NAPROXEN] Allergy (Intermediate, Verified 02/05/23 11:53) ASTHMA bactrim Allergy (Severe, Uncoded 02/05/23 11:53) Hives HPI HPI Comments History of Present Illness Details Gregoria is a 42-year-old patient who is here for tele-health visit for s/p bladder Botox injections. 02/05/23-- The patient underwent cystoscopy and bladder Botox injections 100 units on 01/16/23. The patient states improvement in urinary frequency with the treatment. States she can control the bladder well post the procedure. The patient uses pads and states that they are dry. Plan: Tele-health follow-up after 6 months. [facility] Medical History (Updated 01/23/23 @ 09:48 by Dawn Suazo RN) Asthma Fkrutqe-Lazzy-Kibdn disease COVID-19 vaccine series completed Diabetes History of COVID-19 Hypotonic bladder Kyphosis Scoliosis Wheelchair bound Surgical History (Updated 01/23/23 @ 09:59 by Dawn Suazo RN) History of pubovaginal sling History of surgery History of surgery History of surgery Hx of arthroscopy of knee Hx of cystoscopy Hx of hemorrhoidectomy Hx of tonsillectomy Status post insertion of nerve stimulator Social History Are you a primary infant caregiver to a significant other at home: Yes (daughter (12 y.o)) Do you presently have visiting nurse or other home services: No Patient Tobacco Use Status: Former Tobacco user Quit Date: 2008 Tobacco use type: Cigarette Review of Systems Const All systems reviewed & are unremarkable except as noted in HPI and below Reports no additional complaints Eyes Reports no additional complaints ENT Reports no additional complaints Card Denies dyspnea Resp Denies cough and Denies dyspnea GI Reports no additional complaints Reports no additional complaints Musc Reports no additional complaints Skin/Breast Denies rash and Denies unusual bruising Neuro Reports no additional complaints Psych Reports no additional complaints Endo Reports no additional complaints Bob/Lymph Reports no additional complaints Aller/Immun Reports no additional complaints Assessment & Plan Assessment & Plan (1) Overactive bladder: Code(s): N32.81 - Overactive bladder (2) Spastic neurogenic bladder: Code(s): N31.8 - Other neuromuscular dysfunction of bladder Plan Tele-health follow-up after 6 months. Patient Instructions: The patient had an opportunity to ask questions regarding treatment plan. All questions were answered. No major barriers to understanding were identified. The patient expressed understanding and agreement with the above treatment plan. The patient is aware they should contact our office by phone for worsening of their current condition or the appearance of new symptoms. Compliance is encouraged with any medications and followup testing that is ordered. It is a privilege to be allowed the opportunity to participate in the urologic care of your patient. If you have any questions or concerns regarding treatment for the above conditions please do not hesitate to contact me. The office telephone contact is [phone]. This note is constructed in part using voice recognition software. While every effort has been made to ensure accuracy senior datastage developer errors may have been included. Yours sincerely, Juni Simpson MD Telehealth Telehealth Location of provider rendering services: practice address Location of patient: address on file Patient Identification confirmed using: Name, : Yes Telehealth method: voice only Patient verbally consented to treatment: Yes Patient verbally consented to billing insurance company: Yes Patient informed of any privacy concerns related to visit: Yes Minutes spent on Phone/Video with Pt.: 15 Coding Level of Care Code Tele New Pt Level 3 (72063) Diagnoses Overactive bladder N32.81 Spastic neurogenic bladder N31.8
== END 2023-02-05 13:22 | disposition home or self-care (01) ==
LOC: HO.HUSH 11:51
PROVIDERS: PCP Physician Assistant Medical; Visit Provider Urology
DX: N32.81 Overactive bladder (principal); N31.8 Other neuromuscular dysfunction of bladder
CPT/HCPCS: 99442

== ENCOUNTER → 2023-02-05 11:51 | Outpatient (BNVA) | payer MEDICARE, MEDICAID, SELFPAY | PROVIDERS: PCP Physician Assistant Medical; Visit Provider Urology ==

== ENCOUNTER 2023-06-21 13:36 | Outpatient (AMB) | payer MEDICARE, MEDICAID, SELFPAY ==
--- OUTSIDE RECORDS SUMMARY | 2023-06-21 13:38 | XMS_ITS | Continuity of Care Document ---
Author Name Unknown Organization [facility] ter Address [address] [place] [id number]- Care Team Providers Care Welder Fitter Helper Name Role Phone Rakesh Esteban MD Primary Care Physician Encounter [facility] [place] Date(s): 01/01/23 - 02/22/[address] [address]- Attending Physician: Dawn Fowler MD Allergies, Adverse Reactions, Alerts Substance Reaction Severity Status naproxen Asthma attack Active Medications Advair HFA 230 mcg / 21 mcg 2 puffs, Inhalation, Daily, 0 Refills, Maintenance Start Date: 07/31/12 Status: Ordered Benadryl 25 mg oral tablet 25 mg, 1, tablet, By Mouth, 3 times a day, PRN as needed for itching, # 30 tablet, 0 Refills, Maintenance Start Date: 12/06/21 Status: Ordered predniSONE 20 mg oral tablet 3 tablet = 60 mg, By Mouth, Daily, with food or milk, # 6 tablet, 0 Refills, Maintenance, 12/07/21 9:00:00 EDT, Tablet, [id number], Partial fill upon patient request if the prescription is for a schedule II opioid drug., 156, cm, 11/18... Start Date: 12/07/21 Stop Date: 12/09/21 Status: Ordered VESIcare 10 mg oral tablet 1 tablet = 10 mg, By Mouth, 2 times a day, 0 Refills, Maintenance Start Date: 07/31/12 Status: Ordered Problem List Condition Confirmation Course Effective Dates Status Health [facility] Informant Obese class I Confirmed Active Social History Social History Type Response Smoking Status Never (less than 100 in lifetime) entered on: 12/06/21 Sex Patient Care team information Care Team Personnel Name: Ani Galeas MA Position: [facility] Member Role: Lifetime Consulting Physician Name: Rakesh Esteban MD [facility] Physician - Primary Care Member Role: PCP Address: Address: [address] [place] [address], [address] [place], [place] [address] Care Team Related Persons Name: VIVIENNEHUBER KANU Address: home [address] [place] [address]
--- OUTSIDE RECORDS SUMMARY | 2023-06-21 13:38 | XMS_ITS | Continuity of Care Document ---
Author Name Unknown Organization [facility] ter Address [address] [place] [id number]- Care Team Providers Care Waitstaff Captain Name Role Phone Carlito PAK, Rakesh Alexis Primary Care Physician Encounter [facility] [place] Date(s): 04/19/23 - 06/08/[address] [address]- Attending Physician: Qi Herrera Admitting Physician: Qi Hererra Referring Physician: Qi Herrera Allergies, Adverse Reactions, Alerts Substance Reaction Severity Status naproxen Asthma attack Active Medications Advair HFA 230 mcg / 21 mcg 2 puffs, Inhalation, Daily, 0 Refills, Maintenance Start Date: 07/31/12 Status: Ordered Benadryl 25 mg oral tablet 25 mg, 1, tablet, By Mouth, 3 times a day, PRN as needed for itching, # 30 tablet, 0 Refills, Maintenance Start Date: 12/06/21 Status: Ordered Ozempic (0.25 mg or 0.5 mg dose) 0.5, By Mouth, Every Sunday, 0 Refills, Maintenance, 03/21/23 13:15:00 EDT, Partial fill upon patient request if the prescription is for a schedule II opioid drug. Start Date: 03/21/23 Status: Ordered predniSONE 20 mg oral tablet 3 tablet = 60 mg, By Mouth, Daily, with food or milk, # 6 tablet, 0 Refills, Maintenance, 12/07/21 9:00:00 EDT, Tablet, [facility][id number], Partial fill upon patient request if the [...] Team Personnel Name: Ani Galeas MA Position: [facility] MA Member Role: Lifetime Consulting Physician Name: Rakesh Esteban MD Position: [facility] Physician - Primary Care Member Role: PCP Address: Address: [address] [facility] [place] [address]- Care Team Related Persons Name: KANU ALCARAZ Address: home [address] [place] [id number]
--- NOTE | 2023-06-21 13:39 | A.OFFVIS_ITS ---
Intake Intake Visit Reasons: Botox follow up Intake Note: Patient presents today for a follow-up on Incontinence: medications: None Blood thinners: none Senior Managing Director Required: No Accompanied by: Self / Same As Patient Allergies Sulfa (Sulfonamide Antibiotics) Allergy (Severe, Verified 06/21/23 13:41) Hives naproxen [NAPROXEN] Allergy (Intermediate, Verified 06/21/23 13:41) ASTHMA bactrim Allergy (Severe, Uncoded 06/21/23 13:41) Hives HPI HPI Comments History of Present Illness Details Gregoria is a 42-year-old female who presents today to the office for a follow-up. 06/21/2023? She is followed today for urge incontinence and overactive bladder. She is status post bladder Botox injection 100 units in the operative room about 6 months ago. She states that her urinary frequency had been improved on bladder Botox injection 100 units. She denies any hematuria at this time. Urinary symptoms are worsening and she is ready for a repeat botox bladder injection. Review of chart: The patient underwent cystoscopy and bladder Botox injections 100 units on 01/16/23. 06/21/2023: Plan: Consent form was obtained for bladder Botox injection. We will get authorization for bladder Botox injection. [facility] Medical History History of COVID-19 COVID-19 vaccine series completed Wheelchair bound Kyphosis Scoliosis Diabetes Hypotonic bladder Uncjnzh-Fyyjv-Rhooy disease Asthma Surgical History History of surgery History of surgery Hx of hemorrhoidectomy Status post insertion of nerve stimulator History of pubovaginal sling Hx of tonsillectomy Hx of cystoscopy Hx of arthroscopy of knee History of surgery Social History Are you a primary medicare contact specialist to a significant other at home: Yes (daughter (12 y.o)) Do you presently have visiting nurse or other home services: No Patient Tobacco Use Status: Former Tobacco user Quit Date: 2008 Tobacco use type: Cigarette Advance Directives: No Advance Directives Information Provided: Yes Patient : No Review of Systems Const All systems reviewed & are unremarkable except as noted in HPI and below Reports no additional complaints Eyes Reports no additional complaints ENT Reports no additional complaints Card Denies dyspnea Resp Denies cough and Denies dyspnea GI Reports no additional complaints Reports no additional complaints Musc Reports no additional complaints Skin/Breast Denies rash and Denies unusual bruising Neuro Reports no additional complaints Psych Reports no additional complaints Endo Reports no additional complaints Bob/Lymph Reports no additional complaints Aller/Immun Reports no additional complaints Assessment & Plan Assessment & Plan (1) Overactive bladder: Code(s): N32.81 - Overactive bladder (2) Spastic neurogenic bladder: Code(s): N31.8 - Other neuromuscular dysfunction of bladder Plan Consent form was obtained for bladder Botox injection. We will get authorization for bladder Botox injection. Patient Instructions: The patient had an opportunity to ask questions regarding treatment plan. All questions were answered. Imaging, Laboratory studies and physical exam results were discussed and reviewed in detail. No major barriers to understanding were identified. The patient expressed understanding and agreement with the above treatment plan. The patient is aware they should contact our office by phone for worsening of their current condition or the appearance of new symptoms. Compliance is encouraged with any medications and followup testing that is ordered. It is a privilege to be allowed the opportunity to participate in the urologic care of your patient. If you have any questions or concerns regarding treatment for the above conditions please do not hesitate to contact me. The office telephone contact is [phone]. This note is constructed in part using voice recognition software. While every effort has been made to ensure accuracy distribution sales manager errors may have been included. Yours sincerely, Juni Simpson MD Coding Level of Care Code Est Pt Level 4 (78598) Diagnoses Overactive bladder N32.81 Spastic neurogenic bladder N31.8
== END 2023-06-21 14:22 | disposition home or self-care (01) ==
LOC: HO.HUSH 13:36
PROVIDERS: PCP Physician Assistant Medical; Visit Provider Urology
DX: N32.81 Overactive bladder (principal); N31.8 Other neuromuscular dysfunction of bladder
CPT/HCPCS: 99214

== ENCOUNTER → 2023-06-21 13:36 | Outpatient (BNVA) | payer MEDICARE, MEDICAID, SELFPAY | PROVIDERS: PCP Physician Assistant Medical; Visit Provider Urology | DX: N32.81 Overactive bladder (principal); N31.8 Other neuromuscular dysfunction of bladder | CPT/HCPCS: 99212 ==

== ENCOUNTER 2023-07-03 06:05 | Day surgery (SDC) | payer MEDICARE, MEDICAID, SELFPAY ==
--- NOTE | 2023-07-02 09:23 | P.CONAN_ITS ---
HPI - Anesthesia Eval Consult details Narrative: 42yo F for Cystoscopy bladder with Botox Last 12/2022 with GA-LMA 4 Anesthesia Pre-Procedure Meds Is the patient on any of the following meds?: Semaglutide (Ozempic) (Hasn't taken in >1 month) If Yes to any meds - educate patient: Pt education - increased risk of aspiration and Pt education - possibility of cancelled proc at provider's discretion PMFSH Active Problems Active Problems: All Active Problems (Updated 01/23/23 @ 09:48 by Dawn Suazo RN) Spastic neurogenic bladder (Acute) Antibiotic-induced allergic rash (Acute) Overactive bladder (Acute) Urinary incontinence (Acute) Hypotonic bladder (Acute) Diabetes (Acute) Past Medical History Medical History History of COVID-19 COVID-19 vaccine series completed Wheelchair bound Kyphosis Scoliosis Diabetes Hypotonic bladder Gxrfvkk-Jtwnr-Povtk disease Asthma Family History Family history of problems with anesthesia: No Surgical History Surgical History History of surgery History of surgery Hx of hemorrhoidectomy Status post insertion of nerve stimulator History of pubovaginal sling Hx of tonsillectomy Hx of cystoscopy Hx of arthroscopy of knee History of surgery History of Problems with Anesthesia: No Social History Social History Are you a primary pet care associate to a significant other at home: Yes (daughter (12 y.o)) Do you presently have visiting nurse or other home services: No Patient Tobacco Use Status: Former Tobacco user Quit Date: 2008 Tobacco use type: Cigarette Meds Allergies Allergy/AdvReac Type Severity Reaction Status Date / Time Sulfa (Sulfonamide Allergy Severe Hives Verified 06/21/23 13:41 Antibiotics) naproxen [NAPROXEN] Allergy Intermediate ASTHMA Verified 06/21/23 13:41 bactrim Allergy Severe Hives Uncoded 06/21/23 13:41 Home Medications Medication Instructions Recorded Confirmed Last Taken Type multivitamin 1 tab PO DAILY 08/01/21 11/15/21 Unknown History solifenacin 10 mg tablet 10 mg PO BID 12/01/23/23 01/25/23 History albuterol sulfate 90 mcg/actuation 90 mcg inhalation Q4H PRN Wheezing 09/13/21 01/23/23 Unknown History aerosol inhaler omeprazole 20 mg capsule,delayed 20 mg PO DAILY 09/13/21 01/23/23 Unknown History release cephalexin 500 mg capsule 500 mg PO Q8H 12/09/21 Unknown History albuterol sulfate 2.5 mg/3 mL 2.5 mg inhalation QID PRN 03/21/22 01/23/23 Unknown History (0.083 %) solution for nebulization Shortness Of Breath fluticasone propionate 110 110 mcg inhalation BID 03/21/22 01/23/23 Unknown History mcg/actuation HFA aerosol inhaler semaglutide 0.25 mg or 0.5 mg (2 0.25 mg subcut QWEEK 03/21/22 01/23/23 Unknown History mg/1.5 mL) subcutaneous pen injector ([employer]) sumatriptan succinate 100 mg tablet 100 mg PO DIRECTED 05/02/22 01/23/23 Unknown History cetirizine 10 mg tablet 10 mg PO DAILY 01/23/23 01/23/23 Unknown History fluticasone propionate 50 1 spray intranasal BID 01/23/23 01/23/23 Unknown History mcg/actuation nasal spray,suspension gabapentin 100 mg capsule 100 mg PO Q8H PRN Pain 01/23/23 01/23/23 Unknown History Exam Exam Date and Time: July 02, 2023922 Assessment and Plan Assessment Anesthesia Assessment: Chart Reviewed Final Anesthetic Review Family History of Problems with Anesthesia: No History of Problems with Anesthesia: No
[2023-07-03 07:02] VITALS: BP 138/85; PULSE 83; RESP 16; TEMP 36.6; O2SAT 96; BMI 35.0
[2023-07-03 07:02] LABS: UPreg QC Valid YES; Urine Pregnancy NEGATIVE (NEGATIVE)
[2023-07-03 07:18] LABS: Glucose, Whole Blood 150 mg/dL (60-115)
[2023-07-03] MEDS: Lactated Ringers 1,000 ML 100 ML IVCONT (07:21)
--- NOTE | 2023-07-03 07:38 | MHC.SHP ---
Pre-Procedural Eval Section A Date of Service: 07/03/23 The patient is an INPATIENT: No The History & Physical has been completed within 30 days and I have reviewed it.: Yes Section B Chief Complaint: Overactive bladder Allergies: Allergies Allergy/AdvReac Type Severity Reaction Status Date / Time Sulfa (Sulfonamide Allergy Severe Hives Verified 06/21/23 13:41 Antibiotics) naproxen [NAPROXEN] Allergy Intermediate ASTHMA Verified 06/21/23 13:41 bactrim Allergy Severe Hives Uncoded 06/21/23 13:41 Plan Diagnosis/Plan: Unchanged I have reviewed the history and physical and performed a pertinent physical examination on my patient. No changes have occurred unless specified. Cysto Botox bladder injection, 100 units. Time Spent With Patient Time: Total time managing care of this patient today ____ minutes.
--- NOTE | 2023-07-03 07:48 | P.CONAN_ITS ---
[facility] Active Problems Active Problems: All Active Problems (Updated 01/23/23 @ 09:48 by Dawn Suazo RN) Spastic neurogenic bladder (Acute) Antibiotic-induced allergic rash (Acute) Overactive bladder (Acute) Urinary incontinence (Acute) Hypotonic bladder (Acute) Diabetes (Acute) Past Medical History Medical History History of COVID-19 COVID-19 vaccine series completed Wheelchair bound Kyphosis Scoliosis Diabetes Hypotonic bladder Xthehja-Oqoco-Jqjto disease Asthma Functional capacity: wheelchair bound Patient : No Family History Family history of problems with anesthesia: No Surgical History Surgical History History of surgery History of surgery Hx of hemorrhoidectomy Status post insertion of nerve stimulator History of pubovaginal sling Hx of tonsillectomy Hx of cystoscopy Hx of arthroscopy of knee History of surgery History of Problems with Anesthesia: No Social History Social History Are you a primary technical healthcare consultant to a significant other at home: Yes (daughter (12 y.o)) Do you presently have visiting nurse or other home services: No Patient Tobacco Use Status: Former Tobacco user Quit Date: 2008 Tobacco use type: Cigarette Advance Directives: No Advance Directives Information Provided: Yes Meds Allergies Allergy/AdvReac Type Severity Reaction Status Date / Time Sulfa (Sulfonamide Allergy Severe Hives Verified 06/21/23 13:41 Antibiotics) naproxen [NAPROXEN] Allergy Intermediate ASTHMA Verified 06/21/23 13:41 bactrim Allergy Severe Hives Uncoded 06/21/23 13:41 Active Medications: Current Medications Albuterol Sulfate (Albuterol Sulfate (0.083%) 2.5 Mg/3 Ml Vial.Neb) 2.5 mg INHALE ONCE PRN PRN Reason: Shortness of Breath/Wheezing Lactated Ringer's (Lr) 1,000 mls @ 100 mls/hr IVCONT .Q10H KYM Last Admin: 07/03/23 07:21 Dose: 100 mls/hr Home Medications Medication Instructions Recorded Confirmed Last Taken Type multivitamin 1 tab PO DAILY 08/01/21 11/15/21 Unknown History solifenacin 10 mg tablet 10 mg PO BID 08/01/21 01/23/23 01/25/23 History albuterol sulfate 90 mcg/actuation 90 mcg inhalation Q4H PRN Wheezing 09/13/21 01/23/23 Unknown History aerosol inhaler omeprazole 20 mg capsule,delayed 20 mg PO DAILY 09/13/21 01/23/23 Unknown History release cephalexin 500 mg capsule 500 mg PO Q8H 12/09/21 Unknown History albuterol sulfate 2.5 mg/3 mL 2.5 mg inhalation QID PRN 03/21/22 01/23/23 Unknown History (0.083 %) solution for nebulization Shortness Of Breath fluticasone propionate 110 110 mcg inhalation BID 03/21/22 01/23/23 Unknown History mcg/actuation HFA aerosol inhaler semaglutide 0.25 mg or 0.5 mg (2 0.25 mg subcut QWEEK 03/21/22 01/23/23 Unknown History mg/1.5 mL) subcutaneous pen injector ([employer]) sumatriptan succinate 100 mg tablet 100 mg PO DIRECTED 05/02/22 01/23/23 Unknown History cetirizine 10 mg tablet 10 mg PO DAILY 01/23/23 01/23/23 Unknown History fluticasone propionate 50 1 spray intranasal BID 01/23/23 01/23/23 Unknown History mcg/actuation nasal spray,suspension gabapentin 100 mg capsule 100 mg PO Q8H PRN Pain 01/23/23 01/23/23 Unknown History Exam Exam Date and Time: July 03, 2023 0748 Height,Weight and Vital Signs: Height 5 ft 1 in Weight 83.915 kg Last Vital Signs Temp 98 F 07/03/23 07:02 Pulse 83 07/03/23 07:02 Resp 16 07/03/23 07:02 BP 138/85 07/03/23 07:02 Pulse Ox 96 07/03/23 07:02 Pertinent Lab Results Pertinent Lab Results: Laboratory Tests 07/03/23 07/03/23 06:30 07:06 POC Glucose 150 H Urine Test NEGATIVE Airway Mallampati Class: Patient Non-Cooperative TM Dist: >3cm Neck ROM: Full Heart: RRR Lungs: CTA Assessment and Plan Assessment Anesthesia Assessment: Anesthesia Plan Discussed Final Anesthetic Review Family History of Problems with Anesthesia: No History of Problems with Anesthesia: No NPO: Yes ASA Class: III Final Preanesthetic Review: Meds/Allgs Chart Reviewed, Consent Obtained/Reviewed and Anes Risks/Benef Reviewed Patient Risk: Low Procedure Risk: Low Anesthetic Plan Anesthetic Plan: GA
[2023-07-03 08:09] VITALS: BP 148/83; PULSE 76; RESP 16; TEMP 36.4; O2SAT 95
[2023-07-03 08:14] VITALS: BP 139/88; PULSE 82; RESP 16; O2SAT 97
[2023-07-03 08:19] VITALS: BP 135/80; PULSE 71; RESP 16; O2SAT 98
[2023-07-03 08:24] VITALS: BP 137/80; PULSE 69; RESP 16; O2SAT 98
--- NOTE | 2023-07-03 08:30 | W.PM.OPN ---
Operative Note Operative Note Date of Service: 07/03/23 Narrative: PREOP DIAGNOSIS: Neurogenic bladder, OAB POSTOP DIAGNOSIS: Neurogenic bladder, OAB PROCEDURE: CYSTOSCOPY, BLADDER BOTOX INJECTION 100 UNITS SURGEON: Juni Simpson MD ANESTHESIA: General Indications: Details of procedure: The patient was brought into the operating room placed on the OR table in supine position. Levaquin 500 mg IV. General anesthesia was administered. The patient was repositioned into lithotomy position, prepped and draped in the usual sterile fashion. Time-out was done per protocol. A 22 fr cystoscope was placed transurethrally into the bladder. Urine was sent for culture. The right and left ureteral orifices were visualized. There were moderate trabeculations noted. There were no suspicious bladder lesions seen. The Botox 100 units was mixed with 10 cc of normal saline and injected transurethrally 1/2 cc to 1 cc per injection into the posterior bladder wall. The cystoscope was removed. 2% lidocaine urojet was passed transurethrally into the bladder. The patient was brought out of anesthesia and taken to recovery in stable condition. Complications: None Drains: none
[2023-07-03 08:37] VITALS: BP 133/93; PULSE 83; RESP 16; TEMP 36.2; O2SAT 97
--- NOTE | 2023-07-03 09:11 | HO.POSTANES ---
Post Anesthesia Evaluation Post Anesthesia Evaluation Date of Service: 07/03/23 Vital Signs: Vital Signs Temp Pulse Resp BP Pulse Ox O2 Del Method O2 Flow Rate 07/03/23 08:37 97.1 F 83 16 133/93 H 97 07/03/23 08:24 69 16 137/80 98 Nasal Cannula with ETCO2 3 07/03/23 08:19 71 16 135/80 98 Nasal Cannula with ETCO2 3 07/03/23 08:14 82 16 139/88 97 Nasal Cannula with ETCO2 3 07/03/23 08:09 97.6 F 76 16 148/83 H 95 Nasal Cannula with ETCO2 2 07/03/23 07:02 98 F 83 16 138/85 96 Anesthesia: General LMA Mental Status: Awake Pain Control: Satisfactory Nausea/Vomiting: None Hydration: Adequate Anesthesia-Related Issues: No Anes. Related Issues
== END 2023-07-03 09:04 | disposition home or self-care (01) ==
PROVIDERS: Nurse Practitioner; PCP Internal Medicine; Visit Provider Urology
PROC: 0TJB8ZZ Inspection of Bladder, Via Natural or Artificial Opening Endoscopic (ICD-10-PCS; CPT 52000; principal; 2023-07-03 07:30)
DX: N31.9 Neuromuscular dysfunction of bladder, unspecified (principal); N32.81 Overactive bladder; N32.89 Other specified disorders of bladder; N31.2 Flaccid neuropathic bladder, not elsewhere classified; M40.209 Unspecified kyphosis, site unspecified; G60.0 Hereditary motor and sensory neuropathy; Z99.3 Dependence on wheelchair; E11.9 Type 2 diabetes mellitus without complications; J45.909 Unspecified asthma, uncomplicated; Z79.51 Long term (current) use of inhaled steroids; Z79.899 Other long term (current) drug therapy; Z96.82 Presence of neurostimulator; Z88.2 Allergy status to sulfonamides; Z88.8 Allergy status to other drugs, medicaments and biological substances; Z86.16 Personal history of COVID-19; Z98.890 Other specified postprocedural states; Z87.891 Personal history of nicotine dependence
CPT/HCPCS: 52287; 81025; 82947; 87086; J0585; J1956; J2250; J2704

== ENCOUNTER → 2023-07-03 06:05 | Outpatient (BNV) | payer MEDICARE, MEDICAID, SELFPAY | PROVIDERS: PCP Internal Medicine; Visit Provider Urology | DX: N31.9 Neuromuscular dysfunction of bladder, unspecified (principal) | CPT/HCPCS: 52287 ==

== ENCOUNTER 2024-03-21 08:58 | Outpatient (AMB) | payer MEDICARE, MEDICAID, SELFPAY ==
--- NOTE | 2024-03-21 08:59 | A.OFFVIS_ITS ---
Intake Visit Reasons: H&P Botox Intake Note: Gregoria is a 43 year old female who presents to the office as a telehealth visit today for H&P Botox. Allergies Sulfa (Sulfonamide Antibiotics) Allergy (Severe, Verified 03/21/24 08:59) Hives naproxen [NAPROXEN] Allergy (Intermediate, Verified 03/21/24 08:59) ASTHMA bactrim Allergy (Severe, Uncoded 03/21/24 08:59) Hives HPI Comments Details: Gregoria is a 43-year-old female who presents today for telehealth follow-up. Overactive bladder symptoms managed with Botox bladder injection. She had procedure last in 07/09/2023. States Urinary frequency symptoms were doing well up until about 3 weeks ago, she is getting increased urinary urgency. She denies UTI symptoms. The patient has very good symptom relief with the Botox therapy. Plan repeat botox 100 units. Currently not taking the Ozempic. Review of chart: 06/21/2023? She is followed today for urge incontinence and overactive bladder. She is status post bladder Botox injection 100 units in the operative room about 6 months ago. She states that her urinary frequency had been improved on bladder Botox injection 100 units. She denies any hematuria at this time. Urinary symptoms are worsening and she is ready for a repeat botox bladder injection. [facility] Medical History History of COVID-19 COVID-19 vaccine series completed Wheelchair bound Kyphosis Scoliosis Diabetes Hypotonic bladder Sclrosh-Kwnlv-Vuufv disease Asthma Surgical History History of surgery History of surgery Hx of hemorrhoidectomy Status post insertion of nerve stimulator History of pubovaginal sling Hx of tonsillectomy Hx of cystoscopy Hx of arthroscopy of knee History of surgery Social History Are you a primary physician assistant primary care to a significant other at home: Yes (daughter (12 y.o)) Do you presently have visiting nurse or other home services: No Patient Tobacco Use Status: Former Tobacco user Tobacco use type: Cigarette Review of Systems Const All systems reviewed & are unremarkable except as noted in HPI and below Reports no additional complaints Eyes Reports no additional complaints ENT Reports no additional complaints Card Reports no additional complaints Resp Reports no additional complaints GI Reports no additional complaints Reports as per HPI Musc Reports no additional complaints Skin/Breast Reports system reviewed and no additional complaints, except as documented Neuro Reports no additional complaints Psych Reports no additional complaints Endo Reports no additional complaints Bob/Lymph Reports no additional complaints Aller/Immun Reports no additional complaints Telehealth Telehealth Telehealth Platform: Telephone Location of provider rendering services: practice address Location of patient: address on file Patient Identification confirmed using: Name, : Yes Telehealth method: voice only Patient verbally consented to treatment: Yes Patient verbally consented to billing insurance company: Yes Patient informed of any privacy concerns related to visit: Yes Minutes spent on Phone/Video with Pt.: 15 Assessment & Plan Assessment & Plan (1) Overactive bladder: Code(s): N32.81 - Overactive bladder Category: Medical (2) Spastic neurogenic bladder: Code(s): 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 The patient expressed understanding and agreement with the above treatment plan. The patient is aware they should contact our office by phone for worsening of their current condition or the appearance of new symptoms. Compliance is encouraged with any medications and followup testing that is ordered. It is a privilege to be allowed the opportunity to participate in the urologic care of your patient. If you have any questions or concerns regarding treatment for the above conditions please do not hesitate to contact me. The office telephone contact is [phone]. This note is constructed in part using voice recognition software. While every effort has been made to ensure accuracy financial sales advisor errors may have been included. Yours sincerely, Juni Simpson MD Coding Level of Care Code Est Pt Level 3 (77807) Diagnoses Overactive bladder N32.81 Spastic neurogenic bladder N31.8
== END 2024-03-21 13:11 | disposition home or self-care (01) ==
LOC: HO.HUSH 08:58
PROVIDERS: PCP Internal Medicine; Visit Provider Urology
DX: N32.81 Overactive bladder (principal); N31.8 Other neuromuscular dysfunction of bladder
CPT/HCPCS: 99213

== ENCOUNTER → 2024-03-21 08:58 | Outpatient (BNVA) | payer MEDICARE, MEDICAID, SELFPAY | PROVIDERS: PCP Internal Medicine; Visit Provider Urology | DX: N32.81 Overactive bladder (principal); N31.8 Other neuromuscular dysfunction of bladder | CPT/HCPCS: 99212 ==

== ENCOUNTER 2024-04-08 05:57 | Day surgery (SDC) | payer MEDICARE, MEDICAID, SELFPAY ==
[2024-04-04 13:30] VITALS: BMI 35.0
--- NOTE | 2024-04-04 14:36 | P.CONAN_ITS ---
HPI - Anesthesia Eval Consult details Narrative: 43yo F for Cystoscopy bladder with Botox Last 06/2023 with GA-LMA 4 Anesthesia Pre-Procedure Meds Is the patient on any of the following meds?: GLP1/DPP4 PMFSH Active Problems Active Problems: All Active Problems Spastic neurogenic bladder (Acute) Antibiotic-induced allergic rash (Acute) Overactive bladder (Acute) Urinary incontinence (Acute) Hypotonic bladder (Acute) Diabetes (Acute) Past Medical History Medical History History of COVID-19 COVID-19 vaccine series completed Wheelchair bound Kyphosis Scoliosis Diabetes Hypotonic bladder Qynkxwu-Szaxe-Oyooi disease Asthma Family History Family history of problems with anesthesia: No Surgical History Surgical History H/O eye surgery History of surgery History of surgery Hx of hemorrhoidectomy Status post insertion of nerve stimulator History of pubovaginal sling Hx of tonsillectomy Hx of cystoscopy Hx of arthroscopy of knee History of surgery History of Problems with Anesthesia: No Social History Social History Are you a primary pharmacy customer care specialist to a significant other at home: Yes (daughter (12 y.o)) Do you presently have visiting nurse or other home services: No Patient Tobacco Use Status: Former Tobacco user Tobacco use type: Cigarette Years Smoked: 5 Meds Allergies Allergy/AdvReac Type Severity Reaction Status Date / Time Sulfa (Sulfonamide Allergy Severe Hives Verified 04/08/24 06:29 Antibiotics) naproxen [NAPROXEN] Allergy Intermediate ASTHMA Verified 04/08/24 06:29 bactrim Allergy Severe Hives Uncoded 04/08/24 06:29 Home Medications ?Medication ?Instructions ?Recorded ?Confirmed ?Last Taken ?Type multivitamin 1 tab PO DAILY 08/01/21 04/08/24 Unknown History solifenacin 10 mg tablet 10 mg PO BID 08/01/21 04/08/24 04/08/24 History albuterol sulfate 90 mcg/actuation 90 mcg inhalation Q4H PRN Wheezing 09/13/21 04/08/24 Unknown History aerosol inhaler albuterol sulfate 2.5 mg/3 mL 2.5 mg inhalation QID PRN 03/21/22 04/08/24 Unknown History (0.083 %) solution for nebulization Shortness Of Breath fluticasone propionate 110 110 mcg inhalation BID 03/21/22 04/08/24 Unknown History mcg/actuation HFA aerosol inhaler semaglutide 0.25 mg or 0.5 mg (2 0.25 mg subcut QWEEK 03/21/22 04/08/24 03/08/24 History mg/1.5 mL) subcutaneous pen injector ([employer] cetirizine 10 mg tablet 10 mg PO DAILY 01/23/23 04/08/24 Unknown History fluticasone propionate 50 1 spray intranasal BID 01/23/23 04/08/24 Unknown History mcg/actuation nasal spray,suspension Exam Height,Weight and Vital Signs: Height 5 ft 1 in Weight 83.915 kg Assessment and Plan Assessment Anesthesia Assessment: Chart Reviewed Final Anesthetic Review Family History of Problems with Anesthesia: No History of Problems with Anesthesia: No
[2024-04-08 06:30] VITALS: BP 120/78; PULSE 79; RESP 16; TEMP 36.4; O2SAT 97; BMI 36.4
[2024-04-08 06:47] LABS: UPreg QC Valid YES; Urine Pregnancy NEGATIVE (NEGATIVE)
[2024-04-08 06:50] LABS: Glucose, Whole Blood 146 mg/dL (60-115)
[2024-04-08] MEDS: Lactated Ringers 1,000 ML 100 ML IVCONT (07:08)
--- NOTE | 2024-04-08 07:23 | MHC.SHP ---
Pre-Procedural Eval Section A - 24 Hr Update-Section A only Date of Service: 04/08/24 The patient is an INPATIENT: No The patient has been examined within 24 hours of the surgical procedure. The History & Physical has been completed within 30 days and I have reviewed it.: Yes Section B - Complete if H&P > 30 days Chief Complaint: Other neuromuscular dysfunction of bladder Allergies: Allergies Allergy/AdvReac Type Severity Reaction Status Date / Time Sulfa (Sulfonamide Allergy Severe Hives Verified 04/08/24 06:29 Antibiotics) naproxen [NAPROXEN] Allergy Intermediate ASTHMA Verified 04/08/24 06:29 bactrim Allergy Severe Hives Uncoded 04/08/24 06:29 Plan Diagnosis/Plan: Unchanged I have reviewed the history and physical and performed a pertinent physical examination on my patient. No changes have occurred unless specified. Cystoscopy Bladder Botox injection. Time Spent With Patient Time: Total time managing care of this patient today ____ minutes.
[2024-04-08 08:12] VITALS: BP 116/65; PULSE 87; RESP 18; TEMP 36.9; O2SAT 94
[2024-04-08 08:17] VITALS: BP 115/60; PULSE 87; RESP 18; TEMP 36.9; O2SAT 96
--- NOTE | 2024-04-08 08:17 | P.CONAN_ITS ---
[facility] Active Problems Active Problems: All Active Problems Spastic neurogenic bladder (Acute) Antibiotic-induced allergic rash (Acute) Overactive bladder (Acute) Urinary incontinence (Acute) Hypotonic bladder (Acute) Diabetes (Acute) Past Medical History Medical History History of COVID-19 COVID-19 vaccine series completed Wheelchair bound Kyphosis Scoliosis Diabetes Hypotonic bladder Aaltqhu-Cgems-Inmpg disease Asthma Functional capacity: wheelchair bound Patient : No Family History Family history of problems with anesthesia: No Surgical History Surgical History H/O eye surgery History of surgery History of surgery Hx of hemorrhoidectomy Status post insertion of nerve stimulator History of pubovaginal sling Hx of tonsillectomy Hx of cystoscopy Hx of arthroscopy of knee History of surgery History of Problems with Anesthesia: No Social History Social History Are you a primary acute care nursing assistant to a significant other at home: Yes (daughter (12 y.o)) Do you presently have visiting nurse or other home services: No Patient Tobacco Use Status: Former Tobacco user Tobacco use type: Cigarette Years Smoked: 5 Smoked in Last 30 Days: No Use of substances other than those prescribed or required for medical reasons: No Are you DNR?: No Advance Directives: No Advance Directives Information Provided: Yes Meds Allergies Allergy/AdvReac Type Severity Reaction Status Date / Time Sulfa (Sulfonamide Allergy Severe Hives Verified 04/08/24 06:29 Antibiotics) naproxen [NAPROXEN] Allergy Intermediate ASTHMA Verified 04/08/24 06:29 bactrim Allergy Severe Hives Uncoded 04/08/24 06:29 Active Medications: Current Medications Lactated Ringer's (Lr) 1,000 mls @ 100 mls/hr IVCONT .Q10H KYM Last Admin: 04/08/24 07:08 Dose: 100 mls/hr Home Medications ?Medication ?Instructions ?Recorded ?Confirmed ?Last Taken ?Type multivitamin 1 tab PO DAILY 08/01/21 04/08/24 Unknown History solifenacin 10 mg tablet 10 mg PO BID 08/01/21 04/08/24 04/08/24 History albuterol sulfate 90 mcg/actuation 90 mcg inhalation Q4H PRN Wheezing 09/13/21 04/08/24 Unknown History aerosol inhaler albuterol sulfate 2.5 mg/3 mL 2.5 mg inhalation QID PRN 03/21/22 04/08/24 Unknown History (0.083 %) solution for nebulization Shortness Of Breath fluticasone propionate 110 110 mcg inhalation BID 03/21/22 04/08/24 Unknown History mcg/actuation HFA aerosol inhaler semaglutide 0.25 mg or 0.5 mg (2 0.25 mg subcut QWEEK 03/21/22 04/08/24 03/08/24 History mg/1.5 mL) subcutaneous pen injector ([employer]) cetirizine 10 mg tablet 10 mg PO DAILY 01/23/23 04/08/24 Unknown History fluticasone propionate 50 1 spray intranasal BID 01/23/23 04/08/24 Unknown History mcg/actuation nasal spray,suspension Exam Height,Weight and Vital Signs: Height 5 ft 1 in Weight 87.3 kg Last Vital Signs Temp 98.4 F 04/08/24 08:10 Pulse 87 04/08/24 08:10 Resp 18 04/08/24 08:10 BP 116/65 04/08/24 08:10 Pulse Ox 94 04/08/24 08:10 O2 Del Method Room Air 04/08/24 08:10 Pertinent Lab Results Pertinent Lab Results: Laboratory Tests 04/08/24 04/08/24 06:13 06:46 POC Glucose 146 H Urine Test NEGATIVE Airway Mallampati Class: II TM Dist: >3cm Neck ROM: Full Heart: RRR Assessment and Plan Assessment Anesthesia Assessment: Anesthesia Plan Discussed Final Anesthetic Review Family History of Problems with Anesthesia: No History of Problems with Anesthesia: No NPO: Yes ASA Class: III Final Preanesthetic Review: Meds/Allgs Chart Reviewed, Consent Obtained/Reviewed and Anes Risks/Benef Reviewed Patient Risk: Low Procedure Risk: Low Anesthetic Plan Anesthetic Plan: GA Disposition: Standard PACU
[2024-04-08 08:22] VITALS: BP 107/58; PULSE 79; RESP 18; O2SAT 96
[2024-04-08 08:27] VITALS: BP 113/67; PULSE 79; RESP 18; TEMP 36.9; O2SAT 96
[2024-04-08 08:42] VITALS: BP 117/68; PULSE 79; RESP 18; TEMP 36.9; O2SAT 99
--- NOTE | 2024-04-08 11:47 | W.PM.OPN ---
Operative Note Operative Note Date of Service: 04/08/24 Narrative: PREOP DIAGNOSIS: Neurogenic bladder POSTOP DIAGNOSIS: Neurogenic bladder PROCEDURE: CYSTOSCOPY, BLADDER BOTOX INJECTION 100 UNITS SURGEON: Juni Simpson MD ANESTHESIA: General Details of procedure: The patient was brought into the operating room placed on the OR table in supine position. Levaquin 500 mg IV. General anesthesia was administered. The patient was repositioned into lithotomy position, prepped and draped in the usual sterile fashion. Time-out was done per protocol. A 22 fr cystoscope was placed transurethrally into the bladder. Urine was sent for culture. The right and left ureteral orifices were visualized. There were moderate trabeculations noted. There were no suspicious bladder lesions seen. The Botox 100 units was mixed with 10 cc of normal saline and injected transurethrally 1/2 cc to 1 cc per injection into the posterior bladder wall. The cystoscope was removed. 2% lidocaine urojet was passed transurethrally into the bladder. The patient was brought out of anesthesia and taken to recovery in stable condition. Complications: None Drains: none
--- NOTE | 2024-04-08 14:22 | HO.POSTANES ---
Post Anesthesia Evaluation Post Anesthesia Evaluation Date of Service: 04/08/24 Vital Signs: Vital Signs Temp Pulse Resp BP Pulse Ox O2 Del Method 04/08/24 08:42 98.4 F 79 18 117/68 99 Room Air 04/08/24 08:27 98.4 F 79 18 113/67 96 Room Air 04/08/24 08:22 79 18 107/58 L 96 Room Air 04/08/24 08:17 98.4 F 87 18 115/60 96 Room Air 04/08/24 08:12 98.4 F 87 18 116/65 94 Room Air 04/08/24 06:30 97.5 F 79 16 120/78 97 Room Air Anesthesia: General LMA Mental Status: Awake Pain Control: Satisfactory Nausea/Vomiting: None Hydration: Adequate Anesthesia-Related Issues: No Anes. Related Issues
== END 2024-04-08 09:23 | disposition home or self-care (01) ==
PROVIDERS: Nurse Practitioner; PCP Internal Medicine; Visit Provider Urology
PROC: 3E0K8GC Introduction of Other Therapeutic Substance into Genitourinary Tract, Via Natural or Artificial Opening Endoscopic (ICD-10-PCS; CPT 52287; principal; 2024-04-08 07:30)
DX: N31.8 Other neuromuscular dysfunction of bladder (principal); N32.89 Other specified disorders of bladder; N32.81 Overactive bladder; N39.498 Other specified urinary incontinence; R39.15 Urgency of urination; E11.9 Type 2 diabetes mellitus without complications; G60.0 Hereditary motor and sensory neuropathy; J45.909 Unspecified asthma, uncomplicated; Z99.3 Dependence on wheelchair; Z79.51 Long term (current) use of inhaled steroids; Z79.85 Long-term (current) use of injectable non-insulin antidiabetic drugs; Z88.2 Allergy status to sulfonamides; Z88.6 Allergy status to analgesic agent; Z98.890 Other specified postprocedural states; Z87.891 Personal history of nicotine dependence
CPT/HCPCS: 52287; 81025; 82947; J0585; J1100; J1956; J2250; J2405; J2704; J3010

== ENCOUNTER → 2024-04-08 05:57 | Outpatient (BNV) | payer MEDICARE, MEDICAID, SELFPAY | PROVIDERS: PCP Internal Medicine; Visit Provider Urology | DX: N31.8 Other neuromuscular dysfunction of bladder (principal) | CPT/HCPCS: 52287 ==

== ENCOUNTER → 2024-05-07 10:41 | Outpatient (BNVA) | payer MEDICARE, MEDICAID, SELFPAY | PROVIDERS: PCP Internal Medicine; Visit Provider Urology | DX: N31.2 Flaccid neuropathic bladder, not elsewhere classified (principal); N31.8 Other neuromuscular dysfunction of bladder; R32 Unspecified urinary incontinence | CPT/HCPCS: 51798 ==

== ENCOUNTER 2024-07-10 09:33 | Outpatient (AMB) | payer MEDICARE, MEDICAID, SELFPAY ==
--- NOTE | 2024-07-09 21:21 | A.OFFVIS_ITS ---
Intake Visit Reasons: Bladder botox- follow up Intake Note: Patient is present for BLADDER BOTOX F/U Urology Medication:NONE Antibiotic Allergy:SULFA,BACTRIM Blood Thinner:NONE Manager Roofing Required: No Allergies Sulfa (Sulfonamide Antibiotics) Allergy (Severe, Verified 07/10/24 09:34) Hives naproxen [NAPROXEN] Allergy (Intermediate, Verified 07/10/24 09:34) ASTHMA bactrim Allergy (Severe, Uncoded 07/10/24 09:34) Hives HPI Comments Details: 07/10/24--Gregoria is a 43-year-old female who presents today for telehealth follow-up. Overactive bladder symptoms managed with Botox bladder injection. s/p Botox-100units- 04/08/24. She states she has been doing well. Denies urinary leakage since repeat botox. Plan is to continue Botox bladder injection 100 units every 6 months. Review of chart: 03/21/24--Gregoria is a 43-year-old female who presents today for telehealth follow- up. Overactive bladder symptoms managed with Botox bladder injection. She had procedure last in 07/09/2023. States Urinary frequency symptoms were doing well up until about 3 weeks ago, she is getting increased urinary urgency. She denies UTI symptoms. The patient has very good symptom relief with the Botox therapy. Plan repeat botox 100 units. Currently not taking the Ozempic. 06/21/2023? She is followed today for urge incontinence and overactive bladder. She is status post bladder Botox injection 100 units in the operative room about 6 months ago. She states that her urinary frequency had been improved on bladder Botox injection 100 units. She denies any hematuria at this time. Urinary symptoms are worsening and she is ready for a repeat botox bladder injection. [facility] Medical History History of COVID-19 COVID-19 vaccine series completed Wheelchair bound Kyphosis Scoliosis Diabetes Hypotonic bladder Sfuoswi-Rmedm-Maaap disease Asthma Surgical History H/O eye surgery History of surgery History of surgery Hx of hemorrhoidectomy Status post insertion of nerve stimulator History of pubovaginal sling Hx of tonsillectomy Hx of cystoscopy Hx of arthroscopy of knee History of surgery Social History Are you a primary nanny caregiver to a significant other at home: Yes (daughter (12 y.o)) Do you presently have visiting nurse or other home services: No Patient Tobacco Use Status: Former Tobacco user Tobacco use type: Cigarette Years Smoked: 5 Review of Systems Const All systems reviewed & are unremarkable except as noted in HPI and below Reports no additional complaints Eyes Reports no additional complaints ENT Reports no additional complaints Card Reports no additional complaints Resp Reports no additional complaints GI Reports no additional complaints Reports as per HPI Musc Reports no additional complaints Skin/Breast Reports system reviewed and no additional complaints, except as documented Neuro Reports no additional complaints Psych Reports no additional complaints Endo Reports no additional complaints Bob/Lymph Reports no additional complaints Aller/Immun Reports no additional complaints Telehealth Telehealth Telehealth Platform: [facility] Location of provider rendering services: practice address Location of patient: address on file Patient Identification confirmed using: Name, : Yes Telehealth method: voice only Patient verbally consented to treatment: Yes Patient verbally consented to billing insurance company: Yes Patient informed of any privacy concerns related to visit: Yes Minutes spent on Phone/Video with Pt.: 13 Assessment & Plan Assessment & Plan (1) Overactive bladder: Code(s): N32.81 - Overactive bladder Category: Medical (2) Spastic neurogenic bladder: Code(s): 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 The patient expressed understanding and agreement with the above treatment plan. The patient is aware they should contact our office by phone for worsening of their current condition or the appearance of new symptoms. Compliance is encouraged with any medications and followup testing that is ordered. It is a privilege to be allowed the opportunity to participate in the urologic care of your patient. If you have any questions or concerns regarding treatment for the above conditions please do not hesitate to contact me. The office telephone contact is [phone]. This note is constructed in part using voice recognition software. While every effort has been made to ensure accuracy classified ad clerk errors may have been included. Yours sincerely, Juni Simpson MD Coding Level of Care Code Tele Est Pt Level 3 (98478) Diagnoses Overactive bladder N32.81 Spastic neurogenic bladder N31.8
== END 2024-07-10 10:55 | disposition home or self-care (01) ==
LOC: HO.HUSH 09:33
PROVIDERS: PCP Internal Medicine; Visit Provider Urology
DX: N32.81 Overactive bladder (principal); N31.8 Other neuromuscular dysfunction of bladder
CPT/HCPCS: 99442

== ENCOUNTER → 2024-07-10 09:33 | Outpatient (BNVA) | payer MEDICARE, MEDICAID, SELFPAY | PROVIDERS: PCP Internal Medicine; Visit Provider Urology ==

== ENCOUNTER 2024-10-03 15:36 | Outpatient (AMB) | payer MEDICARE, MEDICAID, SELFPAY ==
--- NOTE | 2024-10-03 12:55 | MHC.OFFVIS ---
Intake Visit Reasons: H&P Bladder Botox Allergies Sulfa (Sulfonamide Antibiotics) Allergy (Severe, Verified 07/10/24 09:34) Hives naproxen [NAPROXEN] Allergy (Intermediate, Verified 07/10/24 09:34) ASTHMA bactrim Allergy (Severe, Uncoded 07/10/24 09:34) Hives Medication List - Last Reconciled 10/03/24 by Juni Simpson MD albuterol sulfate 90 mcg/actuation 90 mcg inhalation Q4H PRN albuterol sulfate 2.5 mg inhalation QID PRN cetirizine 10 mg PO DAILY fluticasone propionate 50 mcg/actuation 1 spray intranasal BID fluticasone propionate 110 mcg/actuation 110 mcg inhalation BID levofloxacin 500 mg PO DAILY 3 days metformin ER 500 mg PO DAILY multivitamin 1 tab PO DAILY oxybutynin chloride ER 10 mg PO DAILY pravastatin 10 mg PO BEDTIME HPI Comments Details: 10/03/24--Gregoria is a 43-year-old female who presents today for telehealth follow-up. Overactive bladder symptoms managed with Botox bladder injection. Last Botox-100units- 04/08/24. State urinary urgency increasing. Plan repeat Botox 100 units. 07/10/24--Gregoria is a 43-year-old female who presents today for telehealth follow-up. Overactive bladder symptoms managed with Botox bladder injection. s/p Botox-100units- 04/08/24. She states she has been doing well. Denies urinary leakage since repeat botox. Plan is to continue Botox bladder injection 100 units every 6 months. 03/21/24--Gregoria is a 43-year-old female who presents today for telehealth follow-up. Overactive bladder symptoms managed with Botox bladder injection. She had procedure last in 07/09/2023. States Urinary frequency symptoms were doing well up until about 3 weeks ago, she is getting increased urinary urgency. She denies UTI symptoms. The patient has very good symptom relief with the Botox therapy. Plan repeat botox 100 units. Currently not taking the Ozempic. 06/21/2023?She is followed today for urge incontinence and overactive bladder. She is status post bladder Botox injection 100 units in the operative room about 6 months ago. She states that her urinary frequency had been improved on bladder Botox injection 100 units. She denies any hematuria at this time. Urinary symptoms are worsening and she is ready for a repeat botox bladder injection. [facility] Medical History History of COVID-19 COVID-19 vaccine series completed Wheelchair bound Kyphosis Scoliosis Diabetes Hypotonic bladder Ignwgmd-Fcfxn-Knlnz disease Asthma Surgical History H/O eye surgery History of surgery History of surgery Hx of hemorrhoidectomy Status post insertion of nerve stimulator History of pubovaginal sling Hx of tonsillectomy Hx of cystoscopy Hx of arthroscopy of knee History of surgery Social History Are you a primary geriatric care manager to a significant other at home: Yes (daughter (12 y.o)) Do you presently have visiting nurse or other home services: No Patient Tobacco Use Status: Former Tobacco user Tobacco use type: Cigarette Years Smoked: 5 Review of Systems Const All systems reviewed & are unremarkable except as noted in HPI and below Reports no additional complaints Eyes Reports no additional complaints ENT Reports no additional complaints Card Reports no additional complaints Resp Reports no additional complaints GI Reports no additional complaints Reports as per HPI Musc Reports no additional complaints Skin/Breast Reports system reviewed and no additional complaints, except as documented Neuro Reports no additional complaints Psych Reports no additional complaints Endo Reports no additional complaints Bob/Lymph Reports no additional complaints Aller/Immun Reports no additional complaints Telehealth Telehealth Telehealth [facility] Location of provider rendering services: practice address Location of patient: address on file Patient Identification confirmed using: Name, : Yes Telehealth method: voice only Patient verbally consented to treatment: Yes Patient verbally consented to billing insurance company: Yes Patient informed of any privacy concerns related to visit: Yes Minutes spent on Phone/Video with Pt.: 13 Assessment & Plan Assessment & Plan (1) Overactive bladder: Code(s): N32.81 - Overactive bladder Category: Medical (2) Spastic neurogenic bladder: Code(s): 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 The patient expressed understanding and agreement with the above treatment plan. The patient is aware they should contact our office by phone for worsening of their current condition or the appearance of new symptoms. Compliance is encouraged with any medications and followup testing that is ordered. It is a privilege to be allowed the opportunity to participate in the urologic care of your patient. If you have any questions or concerns regarding treatment for the above conditions please do not hesitate to contact me. The office telephone contact is [phone]. This note is constructed in part using voice recognition software. While every effort has been made to ensure accuracy clean out driller helper errors may have been included. Yours sincerely, Juni Simpson MD Coding Level of Care Code Tele Est Pt Level 3 (99421) Diagnoses Overactive bladder N32.81 Spastic neurogenic bladder N31.8
== END 2024-10-03 16:44 | disposition home or self-care (01) ==
LOC: HO.HUSH 15:36
PROVIDERS: PCP Internal Medicine; Visit Provider Urology
DX: N32.81 Overactive bladder (principal); N31.8 Other neuromuscular dysfunction of bladder
CPT/HCPCS: 99213

== ENCOUNTER 2024-12-23 10:29 | Day surgery (SDC) | payer MEDICARE, MEDICAID, SELFPAY ==
[2024-12-18 10:12] VITALS: BMI 35.9
--- NOTE | 2024-12-22 10:46 | P.CONAN_ITS ---
Documented by User: Marizol Kumar NP 12/22/24 10:49 HPI - Anesthesia Eval Consult details Narrative: 44yo F for Cystoscopy Bladder Botox Injection s/p same 03/2024 with GA-LMA 3 PMFSH Active Problems Active Problems: All Active Problems Spastic neurogenic bladder (Acute) Antibiotic-induced allergic rash (Acute) Overactive bladder (Acute) Urinary incontinence (Acute) Hypotonic bladder (Acute) Diabetes (Acute) Past Medical History Medical History History of COVID-19 Wheelchair bound Kyphosis Scoliosis Diabetes Hypotonic bladder Mmhqlub-Zhxws-Adpdq disease Asthma Family History Family history of problems with anesthesia: No Surgical History Surgical History H/O eye surgery History of surgery History of surgery Hx of hemorrhoidectomy Status post insertion of nerve stimulator History of pubovaginal sling Hx of tonsillectomy Hx of cystoscopy Hx of arthroscopy of knee History of surgery History of Problems with Anesthesia: No Social History Social History Household Members Other:: minor child Are you a primary continuum of care manager to a significant other at home: Yes Do you presently have visiting nurse or other home services: No Patient Tobacco Use Status: Former Tobacco user Tobacco use type: Cigarette Years Smoked: 5 Meds Allergies Allergy/AdvReac Type Severity Reaction Status Date / Time Sulfa (Sulfonamide Allergy Severe Hives Verified 12/23/24 11:02 Antibiotics) sulfamethoxazole Allergy Severe Hives Verified 12/23/24 11:02 [From Bactrim] trimethoprim [From Bactrim] Allergy Severe Hives Verified 12/23/24 11:02 naproxen [NAPROXEN] Allergy Intermediate ASTHMA Verified 12/23/24 11:02 Active Medications: Current Medications Botulinum Toxin Type A (Onabotulinumtoxina 100 Unit Vial) 100 unit IM ONCE ONE Stop: 12/23/24 07:01 Home Medications ?Medication ?Instructions ?Recorded ?Confirmed ?Last Taken ?Type multivitamin 1 tab PO DAILY 08/01/21 12/18/24 Unknown History albuterol sulfate 90 mcg/actuation 90 mcg inhalation Q4H PRN Wheezing 09/13/21 12/18/24 12/23/24 09:00 History aerosol inhaler albuterol sulfate 2.5 mg/3 mL 2.5 mg inhalation QID PRN 03/21/22 12/18/24 Unknown History (0.083 %) solution for nebulization Shortness Of Breath metformin 500 mg tablet,extended 500 mg PO DAILY 10/03/24 12/18/24 Unknown History release 24 hr oxybutynin chloride 10 mg 10 mg PO DAILY 10/03/24 12/18/24 12/23/24 09:00 History tablet,extended release 24 hr pravastatin 10 mg tablet 10 mg PO BEDTIME 10/03/24 12/18/24 Unknown History Exam Height,Weight and Vital Signs: Height 5 ft 1 in Weight 86.183 kg Assessment and Plan Assessment Anesthesia Assessment: Chart Reviewed Final Anesthetic Review Family History of Problems with Anesthesia: No History of Problems with Anesthesia: No Documented by User: Eric Machuca MD 12/23/24 13:34 [facility] Past Medical History Medical History History of COVID-19 Wheelchair bound Kyphosis Scoliosis Diabetes Hypotonic bladder Yoapecg-Kbsjc-Xakde disease Asthma Surgical History Surgical History H/O eye surgery History of surgery History of surgery Hx of hemorrhoidectomy Status post insertion of nerve stimulator History of pubovaginal sling Hx of tonsillectomy Hx of cystoscopy Hx of arthroscopy of knee History of surgery Social History Social History Household Members Other:: minor child Are you a primary continuum of care manager to a significant other at home: Yes Do you presently have visiting nurse or other home services: No Patient Tobacco Use Status: Former Tobacco user Tobacco use type: Cigarette Years Smoked: 5 Meds Allergies Allergy/AdvReac Type Severity Reaction Status Date / Time Sulfa (Sulfonamide Allergy Severe Hives Verified 12/23/24 11:02 Antibiotics) sulfamethoxazole Allergy Severe Hives Verified 12/23/24 11:02 [From Bactrim] trimethoprim [From Bactrim] Allergy Severe Hives Verified 12/23/24 11:02 naproxen [NAPROXEN] Allergy Intermediate ASTHMA Verified 12/23/24 11:02 Home Medications ?Medication ?Instructions ?Recorded ?Confirmed ?Last Taken ?Type multivitamin 1 tab PO DAILY 08/01/21 12/18/24 Unknown History albuterol sulfate 90 mcg/actuation 90 mcg inhalation Q4H PRN Wheezing 09/13/21 12/18/24 12/23/24 09:00 History aerosol inhaler albuterol sulfate 2.5 mg/3 mL 2.5 mg inhalation QID PRN 03/21/22 12/18/24 Unknown History (0.083 %) solution for nebulization Shortness Of Breath metformin 500 mg tablet,extended 500 mg PO DAILY 10/03/24 12/18/24 Unknown History release 24 hr oxybutynin chloride 10 mg 10 mg PO DAILY 10/03/24 12/18/24 12/23/24 09:00 History tablet,extended release 24 hr pravastatin 10 mg tablet 10 mg PO BEDTIME 10/03/24 12/18/24 Unknown History Exam Airway Mallampati Class: II TM Dist: >3cm Loose/Missing/Broken Teeth: Yes Assessment and Plan Assessment Anesthesia Assessment: Anesthesia Plan Discussed Final Anesthetic Review NPO: Yes ASA Class: III Final Preanesthetic Review: No Changes in Pt Med Stat, Meds/Allgs Chart Reviewed, Consent Obtained/Reviewed and Anes Risks/Benef Reviewed Patient Risk: Intermediate Procedure Risk: Low Anesthetic Plan Anesthetic Plan: GA Disposition: Standard PACU
[2024-12-23] VITALS (7 sets, daily range): BP systolic 112–119; BP diastolic 61–82; PULSE 70–89; RESP 15–18; TEMP 36.3–36.8; O2SAT 96–99
[2024-12-23] MEDS: Lactated Ringers 1,000 ML 100 ML IVCONT (11:25)
[2024-12-23 11:29] LABS: Glucose, Whole Blood 124 mg/dL (60-115)
[2024-12-23 11:39] LABS: HCG Quantitative < 2 mIU/mL
--- NOTE | 2024-12-23 12:36 | P.OP_ITS ---
Operative Note Operative Note Date of Service: 12/23/24 Narrative: PREOP DIAGNOSIS: OAB POSTOP DIAGNOSIS: OAB PROCEDURE: CYSTOSCOPY, BLADDER BOTOX INJECTION 100 UNITS SURGEON: Juni Simpson MD ANESTHESIA: General Details of procedure: The patient was brought into the operating room placed on the OR table in supine position. Antibiotics confirmed. General anesthesia was administered. The patient was repositioned into lithotomy position, prepped and draped in the usual sterile fashion. Time-out was done per protocol. A 22 fr cystoscope was placed transurethrally into the bladder. Urine was sent for culture. The right and left ureteral orifices were visualized. There were moderate trabeculations noted. There were no suspicious bladder lesions seen. The Botox 100 units was mixed with 10 cc of normal saline and transurethral i njections were placed into the posterior wall of the bladder. 0.5cc placed at each injection site. Injections were placed in a grid 5 across and 4 longitudinally. Injections were placed from the inferior to superior position. 2% lidocaine urojet was passed transurethrally into the bladder. The patient was brought out of anesthesia and taken to recovery in stable condition. Complications: None EBL: minimal (<5 mL) Drains: none
--- NOTE | 2024-12-23 12:36 | MHC.SHP ---
Pre-Procedural Eval Section A - 24 Hr Update-Section A only Date of Service: 12/23/24 The patient is an INPATIENT: No The patient has been examined within 24 hours of the surgical procedure. The History & Physical has been completed within 30 days and I have reviewed it.: Yes Section B - Complete if H&P > 30 days Chief Complaint: Overactive bladder Allergies: Allergies Allergy/AdvReac Type Severity Reaction Status Date / Time Sulfa (Sulfonamide Allergy Severe Hives Verified 12/23/24 11:02 Antibiotics) sulfamethoxazole Allergy Severe Hives Verified 12/23/24 11:02 [From Bactrim] trimethoprim [From Bactrim] Allergy Severe Hives Verified 12/23/24 11:02 naproxen [NAPROXEN] Allergy Intermediate ASTHMA Verified 12/23/24 11:02 Plan Diagnosis/Plan: Unchanged I have reviewed the history and physical and performed a pertinent physical examination on my patient. No changes have occurred unless specified. Cystoscopy Bladder Botox injection. Time Spent With Patient Time: Total time managing care of this patient today ____ minutes.
[2024-12-23] MEDS: ceFAZolin Sodium/Dextrose,Iso 2 GM/50 ML PIGGYBACK IV (13:00)
[2024-12-23] MEDS: Phenazopyridine HCL 200 MG TABLET PO (13:35)
== END 2024-12-23 14:19 | disposition home or self-care (01) ==
PROVIDERS: Anesthesiology; PCP Internal Medicine; Visit Provider Urology
PROC: 3E0K8GC Introduction of Other Therapeutic Substance into Genitourinary Tract, Via Natural or Artificial Opening Endoscopic (ICD-10-PCS; CPT 52287; principal; 2024-12-23 12:30)
DX: N32.81 Overactive bladder (principal); N32.89 Other specified disorders of bladder; N31.2 Flaccid neuropathic bladder, not elsewhere classified; R39.15 Urgency of urination; M41.9 Scoliosis, unspecified; M40.209 Unspecified kyphosis, site unspecified; G60.0 Hereditary motor and sensory neuropathy; Z99.3 Dependence on wheelchair; E11.9 Type 2 diabetes mellitus without complications; Z96.82 Presence of neurostimulator; J45.909 Unspecified asthma, uncomplicated; Z79.51 Long term (current) use of inhaled steroids; Z79.84 Long term (current) use of oral hypoglycemic drugs; Z79.899 Other long term (current) drug therapy; Z88.2 Allergy status to sulfonamides; Z88.6 Allergy status to analgesic agent; Z98.890 Other specified postprocedural states; Z87.891 Personal history of nicotine dependence
CPT/HCPCS: 52287; 36415; 82947; 84702; 87086; J0585; J0690; J2003; J2405; J2704; J3010

== ENCOUNTER → 2024-12-23 10:29 | Outpatient (BNV) | payer MEDICARE, MEDICAID, SELFPAY | PROVIDERS: PCP Internal Medicine; Visit Provider Urology | DX: N32.81 Overactive bladder (principal) | CPT/HCPCS: 52287 ==

== ENCOUNTER → 2025-01-13 08:40 | Outpatient (BNVA) | payer MEDICARE, MEDICAID, SELFPAY | PROVIDERS: PCP Internal Medicine; Visit Provider Urology | DX: N31.8 Other neuromuscular dysfunction of bladder (principal) | CPT/HCPCS: 51798 ==

== ENCOUNTER 2025-03-26 11:11 | Outpatient (AMB) | payer MEDICARE, MEDICAID, SELFPAY ==
--- NOTE | 2025-03-26 11:33 | A.OFFVIS_ITS ---
Intake Visit Reasons: Botox, follow up Intake Note: Patient is present for bladder botox follow up Urology Medication:None Antibiotic Allergy:SULFA,BACTRIM Blood Thinner:None PVR:95ml Emergency Medicine Medical Director Required: No Allergies Sulfa (Sulfonamide Antibiotics) Allergy (Severe, Verified 03/26/25 11:34) Hives sulfamethoxazole (From Bactrim) Allergy (Severe, Verified 03/26/25 11:34) Hives trimethoprim (From Bactrim) Allergy (Severe, Verified 03/26/25 11:34) Hives naproxen (NAPROXEN) Allergy (Intermediate, Verified 03/26/25 11:34) ASTHMA HPI Comments Details: 03/26/25- History of Present Illness - The patient is a 44-year-old female presenting with neurogenic bladder and overactive bladder. - She has a history of neurogenic bladder and is treated for overactive bladder symptoms of urgency and leakage. - Botox injections have been administered, with the last on 12/23/24, and she continues to take oxybutynin 10 mg daily for symptom relief. - The patient reports no difficulty urinating and experiences urgency when she needs to void. - Botox efficacy for this patient generally lasts 4 months, and an increase in dosage to 200 units is being considered to potentially reduce the need for oxybutynin. Plan - Increase Botox dosage to 200 units to potentially reduce reliance on oxybutynin for symptom management. 10/03/24--Gregoria is a 43-year-old female who presents today for telehealth follow- up. Overactive bladder symptoms managed with Botox bladder injection. Last Botox-100units- 04/08/24. State urinary urgency increasing. Plan repeat Botox 100 units. 07/10/24--Gregoria is a 43-year-old female who presents today for telehealth follow-up. Overactive bladder symptoms managed with Botox bladder injection. s/p Botox-100units- 04/08/24. She states she has been doing well. Denies urinary leakage since repeat botox. Plan is to continue Botox bladder injection 100 units every 6 months. 03/21/24--Gregoria is a 43-year-old female who presents today for telehealth follow- up. Overactive bladder symptoms managed with Botox bladder injection. She had procedure last in 07/09/2023. States Urinary frequency symptoms were doing well up until about 3 weeks ago, she is getting increased urinary urgency. She denies UTI symptoms. The patient has very good symptom relief with the Botox therapy. Plan repeat botox 100 units. Currently not taking the Ozempic. 06/21/2023?She is followed today for urge incontinence and overactive bladder. She is status post bladder Botox injection 100 units in the operative room about 6 months ago. She states that her urinary frequency had been improved on bladder Botox injection 100 units. She denies any hematuria at this time. Urinary symptoms are worsening and she is ready for a repeat botox bladder injection. [facility] Medical History History of COVID-19 Wheelchair bound Kyphosis Scoliosis Diabetes Hypotonic bladder Mkeajam-Tpuvs-Jurms disease Asthma Surgical History H/O eye surgery History of surgery History of surgery Hx of hemorrhoidectomy Status post insertion of nerve stimulator History of pubovaginal sling Hx of tonsillectomy Hx of cystoscopy Hx of arthroscopy of knee History of surgery Social History Household Members Other:: minor child Are you a primary medicare sales executive to a significant other at home: Yes Do you presently have visiting nurse or other home services: No Patient Tobacco Use Status: Former Tobacco user Tobacco use type: Cigarette Years Smoked: 5 Review of Systems Const All systems reviewed & are unremarkable except as noted in HPI and below Reports no additional complaints Eyes Reports no additional complaints ENT Reports no additional complaints Card Reports no additional complaints Resp Reports no additional complaints GI Reports no additional complaints Reports as per HPI Musc Reports no additional complaints Skin/Breast Reports system reviewed and no additional complaints, except as documented Neuro Reports no additional complaints Psych Reports no additional complaints Endo Reports no additional complaints Bob/Lymph Reports no additional complaints Aller/Immun Reports no additional complaints Assessment & Plan Assessment & Plan (1) Overactive bladder: Code(s): N32.81 - Overactive bladder Category: Medical (2) Spastic neurogenic bladder: Code(s): N31.8 - Other neuromuscular dysfunction of bladder Category: Medical Plan Plan - Increase Botox dosage to 200 units to potentially reduce reliance on oxyb utynin for symptom management. Schedule repeat bladder Botox injection 200 units Orders: Orders AMB Post Void Residual by ultrasound 03/26/25 N31.8 - Other neuromuscular dysfunction of bladder, N32.81 - Overactive bladder Patient Instructions: The patient had an opportunity to ask questions regarding treatment plan. The patient expressed understanding and agreement with the above treatment plan. The patient is aware they should contact our office by phone for worsening of their current condition or the appearance of new symptoms. Compliance is encouraged with any medications and followup testing that is ordered. It is a privilege to be allowed the opportunity to participate in the urologic care of your patient. If you have any questions or concerns regarding treatment for the above conditions please do not hesitate to contact me. The office telephone contact is [phone]. This note is constructed in part using voice recognition software. While every effort has been made to ensure accuracy assistant professor in family studies errors may have been included. Yours sincerely, Juni Simpson MD Scribe Plan - Not visible on output: Patient was informed and verbally consented to the use of an ambient scribe for clinic note documentation during this visit. Coding Level of Care Code Est Pt Level 3 (55193) Complex EM visit Add On G2211 Diagnoses Overactive bladder N32.81 Spastic neurogenic bladder N31.8
--- OUTSIDE RECORDS SUMMARY | 2025-03-26 11:50 | XMS_ITS | Clinical Summary ---
Author Organization [facility] Address [address] [place] [address] Care Team Providers Care Dairy Inspector Name Role Phone Rakesh Esteban Primary Care Provider [phone] Allergies Active Allergy Reactions Criticality Noted Date Comments Naproxen Dyspnea High 01/20/2025 Sulfamethoxazole-Trimethoprim Hives High 2024 Medications metFORMIN ER (GLUCOPHAGE XR) 500 mg tablet Take 500 mg by mouth daily with breakfast. Active pravastatin (PRAVACHOL) 10 mg tablet Take 10 mg by mouth nightly. 5 Active oxybutynin XL (DITROPAN XL) 10 mg tablet Take 10 mg by mouth once a day. Active cholecalciferol (VITAMIN D3) 2,000 unit capsule Take 1 capsule by mouth once a day. 5 Active albuterol (PROAIR HFA,VENTOLIN HFA) 90 mcg inhaler Inhale 2 puffs by mouth every 6 hours as needed for wheezing or shortness of breath. 5 Active acetaminophen (TYLENOL) 325 mg tablet Take 975 mg by mouth every 6 hours as needed for pain. 5 Active Encounters Date Type Department Care Team Description 02/03/2025 myChart Message [facility] [address] [place] [address] Jimenez Malnoe MD genetic testing and referral 02/03/2025 Orders Only [facility] [address] [place] [id number] Jimenez Malone MD Kejmtbi-Qjrld-Hvwkw disease (Primary Dx) 01/20/2025 9:30 AM EDT Office Visit [facility] [address] [place] [address] Jimenez Malone MD Hsqjlgw-Lvvki-Ttetq disease (Primary Dx) from Last 3 Months Family History Relation Name Status Comments Father Alive Mother Alive Social History Tobacco Use Types Packs/Day Years Used Date Smoking Tobacco: Former Cigarettes Smokeless Tobacco: Never Tobacco Cessation:Counseling Given: Not Answered Alcohol Use Standard Drinks/Week Comments Yes 0 (1 standard drink = 0.6 oz pur e alcohol) OCC Comments Unknown Sex and Gender Information Value Date Recorded Sex Assigned at Female 07/04/2024 11:14 AM EST Legal Sex Female 10:41 AM EDT Gender Identity Female 01/13/2025 12:41 PM EDT Sexual Orientation Straight 01/13/2025 12 :41 PM EDT Last Filed Vital Signs Vital Sign Reading Time Taken Comments Blood Pressure 118/80 01/20/2025 8:55 AM EDT Pulse 83 01/20/2025 8:55 AM EDT Temperature 36.8 C (98.2 F) 01/20/2025 8:55 AM EDT Respiratory Rate 16 01/20/2025 8:55 AM EDT Oxygen Saturation - - Inhaled Oxygen Concentration - - Weight 83.5 kg (184 lb) 01/20/2025 8:55 AM EDT Height 154.9 cm (5' 1 ) 01/20/2025 8:55 AM EDT Body Mass Index 34.77 01/20/2025 8:55 AM EDT Plan of Treatment Upcoming Encounters Date Type Department Care Team (Late st Contact Info) Description 07/28/2025 3:20 PM EST Office Visit [facility] [address] [place] [address] Jimenez Malone MD [address] [place] [address] Health Maintenance Due Date Last Done Comments Cervical Cancer Screening 1981 HIV Screening 1981 HPV and Pap Smear 1981 Hepatitis C Screening 1981 Pap Smear 1981 Medicare AWV 1982 Varicella Vaccines (1 of 2 - 13+ 2-dose series) 1994 Hepatitis B Vaccines (1 of 3 - 19+ 3-dose series) 2000 DTaP,Tdap,and Td Vaccines (1 - Tdap) 2003 Mammogram 2021 COVID-19 Vaccine (3 - 2023-2 5 season) 2024 04/06/2021, 03/16/2021 Alcohol/Substance Use Screening 08/20/2024 Depression Screening and Follow-Up 08/20/2024 [employer] Drivers of Health Annual Screening 08/20/2024 Influenza Vaccine (#1) 2025 RSV Vaccine (60+ years old and patients) (1 - 1-dose 75+ series) 2056 Pneumococcal Vaccine: Pediatric (0-5 Years) and At-Risk Patients (6-50 Years) Aged Out No longer eligible based on patient's age to complete this topic Procedures * Due to [place] state law, this organization might not be sharing negative HIV tests. Procedure Name Priority Date/Time Associated Diagnosis Comments CBC AUTO DIFFERENTIAL Routine 01/20/2025 10:40 AM EDT Pzvkoko-Cdria-Aedc h disease COMPREHENSIVE METABOLIC PANEL Routine 01/20/2025 10:40 AM EDT Srkpgdk-Pmxfr-Ckso h disease PROTEIN ELECTROPHORESIS W/REFLEX TO IMMUNOFIXATION, SERUM Routine 01/20/2025 10:40 AM EDT Ujkvtdk-Ordeg-Hgip h disease KAPPA & LAMBDA, FREE W/RATIO Routine 01/20/2025 10:40 AM EDT Edfsfrj-Ikcoe-Sbfn h disease TSH REFLEX FREE T4 Routine 01/20/2025 10 :40 AM EDT Ufvscqp-Bjzvv-Bcqe h disease VITAMIN B12 Routine 01/20/2025 10:40 AM EDT Kedfnaz-Otydx-Czqi h disease HEMOGLOBIN A1C Routine 01/20/2025 10:40 AM EDT Sdxhjpk-Cywri-Snzl h disease [facility] TEST Routine 01/20/2025 10:40 AM EDT Jvbaipi-Unvup-Mdlw h disease from Last 3 Months Results * Due to [place] state law, this organization might not be sharing negative HIV tests. * [facility] Pass Through Lab Test (01/20/2025 10:40 AM EDT) [facility] Done 01/20/2025 9:52 PM EDT EXTERNAL NON-INTERFACED LAB Blood Structure of peripheral vein / Unknown Venipuncture / Unknown 01/20/2025 10:40 AM EDT 01/20/2025 10:46 AM EDT Jimenez Malone MD LAB BLOOD ORDERABLES Final Result EXTERNAL NON-INTERFACED LAB * [place] & Lambda, Free w/Ratio (01/20/2025 10:40 AM EDT) [place] Light Chain, Free, Serum 14.5 3.3 - 19.4 mg/L 01/21/2025 10:28 AM EDT [facility] Lambda Light Chain, Free, Serum 11.1 5.7 - 26.3 mg/L 01/21/2025 10:28 AM EDT [facility] [place]/Lambda Light Chains Free With Ratio 1.31 0.26 - 1.65 01/21/2025 10:28 AM EDT [facility] Comment: Free kappa/lambda ratio in serum of normal individuals is 0.26-1.65. Excess production of free kappa or lambda chains can alter this ratio. Monoclonal free light chains are found in serum of patients with multiple myeloma, Waldenstrom's macroglobulinemia, mu-heavy chain disease, primary amyloidosis, light chain deposition disease, monoclonal gammopathy of undetermined significance, and lymphoproliferative disorders. Measurement of free light chain concentration in serum is useful for diagnosis, prognosis, monitoring disease activity and following response to therapy of these disorders. Blood Structure of peripheral vein / Unknown Venipuncture / Unknown 01/20/2025 10:40 AM EDT 01/20/2025 10:48 AM EDT Narrative [facility] - 01/21/2025 10:28 AM EDT [facility] Received Date: Jimenez Malone MD LAB BLOOD ORDERABLES Final Result [facility] [address] [facility] 3rd Floor, [place] [address], [facility] [address] [facility] [address], [place] [address], * (ABNORMAL) Protein Electrophoresis w/Reflex to Immunofixation, Serum (01/20/2025 10:40 AM EDT) Protein, Total 6.4 6.1 - 8.1 g/dL 01/22/2025 12:17 PM EDT [facility] Albumin 3.6(L) 3.8 - 4.8 g/dL 01/22/2025 12:17 PM EDT [facility] Alpha 1 Globulin 0.3 0.2 - 0.3 g/dL 01/22/2025 12:17 PM EDT [facility] Alpha 2 Globulin 0.8 0.5 - 0.9 g/dL 01/22/2025 12:17 PM [facility] Beta 1 Globulin 0.5 0.4 - 0.6 g/dL 01/22/2025 12:17 PM EDT [facility] Beta 2 Globulin 0.4 0.2 - 0.5 g/dL 01/22/2025 12:17 PM [facility] Gamma Globulin 0.9 0.8 - 1.7 g/dL 01/22/2025 12:17 PM EDT [facility] Interpretation See Comments 01/22/2025 12:17 PM EDT [facility] Comment: Evaluation reveals an isolated decrease in albumin. This pattern is suggestive of decreased protein synthesis or protein loss. Consider ordering pre- albumin quantitation. Blood Structure of peripheral vein / Unknown Venipuncture / Unknown 01/20/2025 10:40 AM EDT 01/20/2025 10:48 AM EDT [facility]ative [facility] - 01/22/2025 12:17 PM EDT [facility] Received Date: us Jimenez Malone MD LAB BLOOD ORDERABLES Final Result [facility] [address] [facility] 3[address] Floor, [place] [address], [place] [phone] [facility] [address] [facility] [address], [place] [address], [place] [phone] * TSH Reflex Free T4 (01/20/2025 10:40 AM EDT) TSH 2.300 0.280 - 3.890 uIU/mL 01/20/2025 11:36 AM EDT [facility] Comment: Females: 1st trimester 0.150-4.000 IU/mL 2nd trimester 0.310-4.170 IU/mL 3rd trimester 0.380-4.150 IU/mL Blood Structure of peripheral vein / Unknown Venipuncture / Unknown 01/20/2025 10:40 AM EDT 01/20/2025 10:48 AM EDT us Jimenez Malone MD LAB BLOOD ORDERABLES Final Result [facility] [address] [place] [address], [place] * (ABNORMAL) CBC Auto Differential (01/20/2025 10:40 AM EDT) WBC 8.0 3.8 - 10.8 10*3/uL 01/20/2025 10:55 AM EDT [facility] RBC 3.65(L) 3.80 - 5.10 10*6/uL 01/20/2025 10:55 AM EDT [facility] Hemoglobin 11.0(L) 11.7 - 15.5 g/dL 01/20/2025 10:55 AM EDT [facility] Hematocrit 35.8 35.0 - 45.0 % 01/20/2025 10:55 AM EDT [facility] MCV 98.1 80.0 - 100.0 fL 01/20/2025 10:55 AM EDT [facility] MCH 30.1 27.0 - 33.0 pg 01/20/2025 10:55 AM EDT [facility] MCHC 30.7(L) 32.0 - 36.0 g/dL 01/20/2025 10:55 AM EDT [facility] RDW 14.4 11.0 - 15.0 % 01/20/2025 10:55 AM EDT [facility] Platelets 272 140 - 400 10*3/uL 01/20/2025 10:55 AM EDT [facility] MPV 9.9 7.5 - 12.5 fL 01/20/2025 10:55 AM EDT [facility] Neutrophil % 51.0 % 01/20/2025 10:55 AM EDT [facility] Immature Grans % 0.3 0.0 - 0.9 % 01/20/2025 10:55 AM EDT [facility] Lymphocyte % 38.6 % 01/20/2025 10:55 AM EDT [facility] Monocyte % 7.0 % 01/20/2025 10:55 AM EDT [facility] Eosinophil % 2.3 % 01/20/2025 10:55 AM EDT [facility] Basophil % 0.8 % 01/20/2025 10:55 AM EDT [facility] Neutrophil # 4.08 1.50 - 7.80 10*3/uL 01/20/2025 10:55 AM EDT [facility] Immature Grans # <0.03 <=0.03 10*3/uL 01/20/2025 10:55 AM EDT [facility] Lymphocyte # 3.10 0.85 - 3.90 10*3/uL 01/20/2025 10:55 AM EDT [facility] Monocyte # 0.60 0.20 - 0.95 10*3/uL 01/20/2025 10:55 AM EDT [facility] Eosinophil # 0.20 0.02 - 0.50 10*3/uL 01/20/2025 10:55 AM EDT [facility] Basophil # 0.10 0.00 - 0.20 10*3/uL 01/20/2025 10:55 AM EDT [facility] nRBC % 0.0 /100 WBCs 01/20/2025 10:55 AM EDT [facility] nRBC # <0.01 <0.01 10*3/uL 01/20/2025 10:55 AM EDT [facility] Blood Structure of peripheral vein / Unknown Venipuncture / Unknown 01/20/2025 10:40 AM EDT 01/20/2025 10:48 AM EDT us Jimenez Malone MD LAB BLOOD ORDERABLES Final Result [facility] [address] [place] [address], * (ABNORMAL) Hemoglobin A1c (01/20/2025 10:40 AM EDT) Hemoglobin A1C 6.3(H) <5.7 % 01/20/2025 7:11 PM EDT [facility] Comment: For someone without known diabetes, a hemoglobin A1c value between 5.7% and 6.4% is consistent with prediabetes and should be confirmed with a follow-up test. For someone with known diabetes, a value <7% indicates that their diabetes is well controlled. A1c targets should be individualized based on duration of diabetes, age, comorbid conditions, and other considerations. This assay result is consistent with an increased risk of diabetes. Currently, no consensus exists regarding use of hemoglobin A1c for diagnosis of diabetes for children. eAG (MG/DL) 134 mg/dL 01/20/2025 7:11 PM EDT [facility] eAG (MMOL/L) 7.4 mmol/L 01/20/2025 7:11 PM EDT [facility] Blood Structure of peripheral vein / Unknown Venipuncture / Unknown 01/20/2025 10:40 AM EDT 01/20/2025 10:48 AM EDT Narrative [facility] - 01/20/2025 7:11 PM EDT [facility] Received Date: us Jimenez Malone MD LAB BLOOD ORDERABLES Final Result [facility] [address] [facility] [address] [facility], [place] [address], [facility] [address], [place] [address], [place] [phone] * Vitamin B12 (01/20/2025 10:40 AM EDT) Vitamin B12 737 232 - 1,245 pg/mL 01/20/2025 11:36 AM EDT [facility] Blood Structure of peripheral vein / Unknown Venipuncture / Unknown 01/20/2025 10:40 AM EDT 01/20/2025 10:48 AM EDT us Jimenez Malone MD LAB BLOOD ORDERABLES Final Result [facility] [address] [place] [address], [place] * (ABNORMAL) Comprehensive Metabolic Panel (01/20/2025 10:40 AM EDT) NA 143 135 - 145 mmol/L 01/20/2025 11:36 AM EDT [facility] K 4.1 3.5 - 5.3 mmol/L 01/20/2025 11:36 AM EDT [facility] Cl 107 98 - 107 mmol/L 01/20/2025 11:36 AM EDT [facility] CO2 25 22 - 32 mmol/L 01/20/2025 11:36 AM EDT [facility] Anion Gap 11 5 - 15 01/20/2025 11:36 AM EDT [facility] Glucose 119(H) 65 - 99 mg/dL 01/20/2025 11:36 AM EDT [facility] Creatinine 0.21(L) 0.50 - 1.20 mg/dL 01/20/2025 11:36 AM EDT [facility] Calcium 9.1 8.6 - 10.5 mg/dL 01/20/2025 11:36 AM EDT [facility] Total Protein 6.6 6.0 - 8.0 g/dL 01/20/2025 11:36 AM EDT [facility] Albumin 3.9 3.5 - 5.2 g/dL 01/20/2025 11:36 AM EDT [facility] Bilirubin, Total 0.4 0.2 - 1.2 mg/dL 01/20/2025 11:36 AM EDT [facility] Alkaline Phosphatase 97 35 - 129 U/L 01/20/2025 11:36 AM EDT [facility] AST 15 10 - 40 U/L 01/20/2025 11:36 AM EDT [facility] ALT 12 10 - 40 U/L 01/20/2025 11:36 AM EDT [facility] BUN 9 7 - 23 mg/dL 01/20/2025 11:36 AM EDT [facility] eGFR >90 >=60 mL/min/1 .73m2 01/20/2025 11:36 AM EDT [facility] Comment:The estimated glomer ular filtration rate (eGFR) is calculated using a new formula developed by the NKF-ASN task force to eliminate race-based correction factors. The new formula uses serum/plasma creatinine, age, and gender to determine eGFR. A value below 60mls/min might indicate kidney disease and will be flagged. For additional information, see Hoffmann et al, Am J Kidney Dis. 2021;79(2):268- 288, A Unifying Approach for GFR estimation: Recommendations of the NKF-ASN Task Force on Reassessing the Inclusion of Race in Diagnosing Kidney Disease . Globulin, Total 2.7 2.1 - 4.2 g/dL 01/20/2025 11:36 AM EDT [facility] A/G Ratio 1.4(L) 1.5 - 3.0 01/20/2025 11:36 AM EDT [facility] Blood Structure of peripheral vein / Unknown Venipuncture / Unknown 01/20/2025 10:40 AM EDT 01/20/2025 10:48 AM EDT us Jimenez Malone MD LAB BLOOD ORDERABLES Final Result [facility] [address] [place] [address], from Last 3 Months Insurance MEDICARE [facility] Care Teams Dairy Inspector Relationship Specialty Start Date End Date [facility]akesh [facility]eban [address] [facility] [phone] PCP - General Internal Medicine 07/04/24
--- OUTSIDE RECORDS SUMMARY | 2025-03-26 11:50 | XMS_ITS | Encounter Summary ---
Author Organization [facility] Address [address] 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 Rakesh Esteban MD Phone: tel: fax: [facility] [address] [place] [address] Phone: tel: Referral ID Status Reason Start Date Expiration Date Visits Re quested Visits Authorized [id number] Closed 07/16/2019 07/16/2020 99 [phone] Encounter Details Date Type Department Care Team (Late st Contact Info) Description 07/16/2019 Transcribe Orders [facility] [address] [place] [address] Rakesh Esteban MD [address] [facility] [address] [place] [address] Encounter for rehabilitation (Primary Dx) Social History Tobacco Use Types Packs/Day Years Used Date Smoking Tobacco: Never Assessed Comments Unknown Sex and Gender Information Value Date Recorded Sex Assigned at Not on file Legal Sex Female 12:21 PM EDT Gender Identity Not on file Sexual Orientation Not on file documented as of this encounter Plan of Treatment Upcoming Encounters Date Type Department Care Team ([facility] st Contact Info) Description 09/30/2025 3:00 PM EST Office Visit [facility] [address] [facility] 8th [place] [address] Joe Laws MD [address] [facility] [place] [address] [email or web address] Scheduled Referrals Name Type Priority Associated Diagnoses Orde r Schedule Ambulatory referral to [facility] Occupational Therapy Outpatient Referral Routine Encounter for rehabilitation Ordered: 07/16/2019 documented as of this encounter Visit Diagnoses Diagnosis Encounter for rehabilitation- Primary documented in this encounter Care Teams Manager Research Relationship Specialty Start Date End Date Min Esteban MD [address] [facility] [address] [place] [address] [email or web address] PCP - General Family Medicine 06/20/19 documented as of this encounter Additional Source Comments The information contained in this document represents components of the legal health record. It is not the complete legal health record.[facility]
== END 2025-03-26 12:01 | disposition home or self-care (01) ==
LOC: HO.HUSH 11:12
PROVIDERS: PCP Internal Medicine; Visit Provider Urology
DX: N32.81 Overactive bladder (principal); N31.8 Other neuromuscular dysfunction of bladder
CPT/HCPCS: 99213; G2211

== ENCOUNTER → 2025-03-26 11:11 | Outpatient (BNVA) | payer MEDICARE, MEDICAID, SELFPAY | PROVIDERS: PCP Internal Medicine; Visit Provider Urology | DX: N32.81 Overactive bladder (principal); N31.8 Other neuromuscular dysfunction of bladder | CPT/HCPCS: 99212 ==

== ENCOUNTER 2025-07-07 09:33 | Day surgery (SDC) | payer MEDICARE, MEDICAID, SELFPAY ==
--- OUTSIDE RECORDS SUMMARY | 2025-05-26 10:03 | XMS_ITS | Clinical Summary ---
Author Organization [facility] Address [address] [place] [address] Care Team Providers Care Substitute Bus Driver Name Role Phone Rakesh Esteban Primary Care Provider [phone] Allergies Active Allergy Reactions Criticality Noted Date Comments Naproxen Dyspnea High 01/20/2025 Sulfamethoxazole-Trimethoprim Hives High 2024 Medications metFORMIN ER (GLUCOPHAGE XR) 500 mg tablet Take 500 mg by mouth daily with breakfast. Active pravastatin (PRAVACHOL) 10 mg tablet Take 10 mg by mouth nightly. Active oxybutynin XL (DITROPAN XL) 10 mg tablet Take 10 mg by mouth once a day. Active cholecalciferol (VITAMIN D3) 2,000 unit capsule Take 1 capsule by mouth once a day. Active albuterol (PROAIR HFA,VENTOLIN HFA) 90 mcg inhaler Inhale 2 puffs by mouth every 6 hours as needed for wheezing or shortness of breath. Active acetaminophen (TYLENOL) 325 mg tablet Take 975 mg by mouth every 6 hours as needed for pain. Active Family History Relation Name Status Comments Father [...] Description 07/28/2025 3:20 PM EST Office Visit [facility] [address] [place] [address] Jimenez Malone MD [address] [place] [address] Health Maintenance Due Date Last Done Comments Cervical Cancer Screening 1981 HIV Screening 1981 HPV and Pap Smear 1981 Hepatitis C Screening 1981 Pap Smear 1981 Medicare AWV 1982 Varicella Vaccines (1 of 2 - 13+ 2-dose series) 1994 Hepatitis B Vaccines (1 of 3 - 19+ 3-dose series) 2000 DTaP,Tdap,and Td Vaccines (1 - Tdap) 2003 Mammogram 2021 Alcohol/Substance Use Screening 08/20/2024 Depression Screening and Follow-Up 08/20/2024 Social Drivers of Health Annual Screening 08/20/2024 COVID-19 Vaccine (3 - 2024-2 6 season) 2025 04/06/2021, 03/16/2021 Influenza Vaccine (#1) 2025 Diabetes Screening 01/21/2028 01/20/2025, 01/20/2025 RSV Vaccine (60+ years old and patients) (1 - 1-dose 75+ series) 2056 Pneumococcal Vaccine: Pediatric (0-5 Years) and At-Risk Patients (6-50 Years) Aged Out No longer eligible based on patient's age to complete this topic Procedures * Due to [place] [employer] law, this organization might not be sharing negative HIV tests. Procedure Name Priority Date/Time Associated Diagnosis Comments HEMOGLOBIN A1C Routine 01/20/2025 10:40 AM EDT Wpyxehl-Wcjtg-Itlqf disease from Last 3 Months or Most Recently Relevant to Health Maintenance Results * Due to [place] [employer] law, this organization might not be sharing negative HIV tests. * (ABNORMAL) Hemoglobin A1c (01/20/2025 10:40 AM EDT) Hemoglobin A1C 6.3(H) <5.7 % 01/20/2025 7:11 PM EDT [facility] Comment: For someone without known diabetes, a [...] (MG/DL) 134 mg/dL 01/20/2025 7:11 PM EDT [facility] eAG (MMOL/L) 7.4 mmol/L 01/20/2025 7:11 PM [facility] Blood Structure of peripheral vein / Unknown Venipuncture / Unknown 01/20/2025 10:40 AM EDT 01/20/2025 10:48 AM EDT Narrative [facility] - 01/20/2025 7:11 PM EDT [facility] Received Date:[id number] us Jimenez Malone MD LAB BLOOD ORDERABLES Final Result [facility] [address] [facility] 3rd Floor, [place] [address], [place] [phone] [facility] [address] [facility] 3rd Floor, [place] [address], [place] [phone] from Last 3 Months or Most Recently Relevant to Health Maintenance Insurance MEDICARE [facility] Care Teams Substitute Bus Driver Relationship Specialty Start Date End Date Rakesh Esteban [address] [place] [address] PCP - General Internal Medicine 07/04/24
--- OUTSIDE RECORDS SUMMARY | 2025-05-26 10:03 | XMS_ITS | Clinical Summary ---
Author Organization [facility] Address [address] [facility] [address] [place] [phone] Phone Care Team Providers Care Room Clerk Name Role Phone Min Esteban MD Primary Care Provider [phone] Social History Tobacco Use Types Packs/Day Years Used Date Smoking Tobacco: Never Assessed Education Answer Date Recorded Are you interested in more education? Not on shyla e 12/15/2022 Are you concerned about learning? Not on file 12/15/2022 No 12/15/2022 No 12/15/2022 Digital Access Answer Date Recorded No 01/13/2023 No 01/13/2023 No 01/13/2023 Reliable internet access at home? Not on file 01/13/2023 Device with a working camera? Not on file Comments Unknown Sex and Gender Information Value Date Recorded Sex Assigned at Not on file Legal Sex Female 12:21 PM EDT Gender Identity Not on file Sexual Orientation Not on file Plan of Treatment Upcoming Encounters Date Type Department Care Team (Late st Contact Info) Description 09/30/2025 3:00 PM EST Office Visit [facility] Neuromuscular Service [address] [place] [address] Joe Laws MD [address] [facility] [address] [place] [address] [email or web address] Health Maintenance Due Date Last Done Comments Adult Td,Tdap Booster 1981 DEPRESSION SCREENING 1993 SMOKING Hx and SMOKELESS TOBACCO SCREENING 1994 HEPATITIS C SCREENING 1999 HIV ONE-TIME SCREENING (18-6 5 YEARS) 1999 PAP SMEAR 2002 MAMMOGRAM 2021 INFLUENZA VACCINE (#1) 2025 COVID-19 VACCINE (2024-2 6 season) 2025 04/06/2021, 03/16/2021 HEPATITIS A VACCINES Aged Out No long er eligible based on patient's age to complete this topic HIB VACCINES Aged Out No longer eligi ble based on patient's age to complete this topic MENINGOCOCCAL VACCINES (ACWY) Aged Out No longer eligible based on patient's age to complete this topic MENINGOCOCCAL VACCINES (B) Aged Out N o longer eligible based on patient's age to complete this topic PNEUMOCOCCAL VACCINES (0-49 years) Aged Out No longer eligible b ased on patient's age to complete this topic Medical Devices Not on file Insurance [address] [place] [address] MEDICARE PART A & B [facility] MEDICARE PART A & B [place] [address] [place] [address] MED[place]ARE PART A & B [place] [address] [place] [address] MED[place]ARE PART A & [place] [address] [address] MEDICARE PART A & B [place] [address] [place] [id number] MEDICARE PART A & B [facility] [address] [place] [address] MEDICARE PART A & B [place] [address] [place] [address] MED[place]ARE PART A & B [place] [address] [place] [address] MEDICARE PART A & B [facility] Care Teams Room Clerk Relationship Specialty Start Date End Date Min Esteban MD [address] [facility] [address] [place] [address] PCP - General Family Medicine 06/20/19 Additional Source Comments The information contained in this document represents components of the legal health record. It is not the complete legal health record.[facility]
--- OUTSIDE RECORDS SUMMARY | 2025-05-26 10:03 | XMS_ITS | Encounter Summary ---
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 Rakesh Esteban MD Phone: tel: fax: [facility] [address] [place] [address] Phone: tel: Referral ID Status Reason Start Date Expiration Date Visits Re quested Visits Authorized [id number] Closed 07/16/2019 07/16/2020 99 99 Encounter Details Date Type Department Care Team (Late st Contact Info) Description 07/16/2019 Transcribe Orders [facility] [address] [place] [address] Rakesh Esteban MD [address] [facility] [address] [place] [id number] Encounter for rehabilitation (Primary Dx) Social History [...] Description 09/30/2025 3:00 PM EST Office Visit [facility] Neuromuscular Service [address] [place] [address] Joe Laws MD [address] [place] [address] [email or web address] Scheduled Referrals Name Type Priority Associated Diagnoses Orde r Schedule Ambulatory referral to [facility] Occupational Therapy Outpatient Referral Routine Encounter for rehabilitation Ordered: 07/16/2019 documented as of this encounter Visit Diagnoses Diagnosis Encounter for rehabilitation- Primary documented in this encounter Care Teams Working Supervisor Relationship Specialty Start Date End Date Min Esteban MD [address] [facility] [address] [place] [address] [email or web address] PCP - General Family Medicine 06/20/19 documented as of this encounter Additional Source Comments The information contained in this document represents components of the legal health record. It is not the complete legal health record.[facility]
[2025-06-05 08:35] VITALS: BMI 35.8
--- NOTE | 2025-06-05 14:00 | HO.ANESPROP2 ---
Documented by User: Poonam Reyes NP 06/25/25 14:07 HPI - Anesthesia Eval Consult details Narrative: 44 yr old female for Cystoscopy Botox Injection re-scheduled 07/07/25 s/p cystoscopy with GA, LMA size 3 12/2024 Dwnumgw-Hgglg-Cagfi disease: wheelchair bound PMFSH Active Problems Active Problems: All Active Problems Spastic neurogenic bladder (Acute) Antibiotic-induced allergic rash (Acute) Overactive bladder (Acute) Urinary incontinence (Acute) Hypotonic bladder (Acute) Diabetes (Acute) Past Medical History Medical History History of COVID-19 Wheelchair bound Kyphosis Scoliosis Diabetes Hypotonic bladder Yrlrctu-Gmxnk-Qujtj disease Asthma Family History Family history of problems with anesthesia: No Surgical History Surgical History H/O eye surgery History of surgery History of surgery Hx of hemorrhoidectomy Status post insertion of nerve stimulator History of pubovaginal sling Hx of tonsillectomy Hx of cystoscopy Hx of arthroscopy of knee History of surgery History of Problems with Anesthesia: No Social History Social History Household Members Other:: minor child Are you a primary care professionals to a significant other at home: No Do you presently have visiting nurse or other home services: No Patient Tobacco Use Status: Former Tobacco user Tobacco use type: Cigarette Years Smoked: 5 Second Hand Smoke Exposure: No Use of substances other than those prescribed or required for medical reasons: No Have you been hit, kicked, punched, or otherwise hurt by someone within the past year? If so, by whom?: No Advance Directives: No Advance Directives Information Provided: Yes Advance Directives on File: No Patient : No : No Meds Allergies Allergy/AdvReac Type Severity Reaction Status Date / Time Sulfa (Sulfonamide Allergy Severe Hives Verified 03/26/25 11:34 Antibiotics) sulfamethoxazole (From Allergy Severe Hives Verified 03/26/25 11:34 Bactrim) trimethoprim (From Bactrim) Allergy Severe Hives Verified 03/26/25 11:34 naproxen (NAPROXEN) Allergy Intermediate ASTHMA Verified 03/26/25 11:34 Home Medications ?Medication ?Instructions ?Recorded ?Confirmed ?Last Taken ?Type multivitamin 1 tab PO DAILY 08/01/21 06/05/25 Unknown History albuterol sulfate 90 mcg/actuation 90 mcg inhalation Q4H PRN Wheezing 09/13/21 06/05/25 12/23/24 09:00 History aerosol inhaler albuterol sulfate 2.5 mg/3 mL 2.5 mg inhalation QID PRN 03/21/22 06/05/25 Unknown History (0.083 %) solution for nebulization Shortness Of Breath metformin 500 mg tablet,extended 500 mg PO DAILY 10/03/24 06/05/25 Unknown History release 24 hr oxybutynin chloride 10 mg 10 mg PO DAILY 10/03/24 06/05/25 12/23/24 09:00 History tablet,extended release 24 hr pravastatin 10 mg tablet 10 mg PO BEDTIME 10/03/24 06/05/25 Unknown History Exam Height,Weight and Vital Signs: Height 5 ft 1 in Weight 86 kg Assessment and Plan Final Anesthetic Review Family History of Problems with Anesthesia: No History of Problems with Anesthesia: No Documented by User: Sy Barcenas MD 07/07/25 12:38 [facility] Past Medical History Medical History History of COVID-19 Wheelchair bound Kyphosis Scoliosis Diabetes Hypotonic bladder Oeghyst-Gdqry-Vxnem disease Asthma Functional capacity: independent ambulation Surgical History Surgical History H/O eye surgery History of surgery History of surgery Hx of hemorrhoidectomy Status post insertion of nerve stimulator History of pubovaginal sling Hx of tonsillectomy Hx of cystoscopy Hx of arthroscopy of knee History of surgery Social History Social History Household Members Other:: minor child Are you a primary care professionals to a significant other at home: No Do you presently have visiting nurse or other home services: No Patient Tobacco Use Status: Former Tobacco user Tobacco use type: Cigarette Years Smoked: 5 Second Hand Smoke Exposure: No Use of substances other than those prescribed or required for medical reasons: No Have you been hit, kicked, punched, or otherwise hurt by someone within the past year? If so, by whom?: No Advance Directives: No Advance Directives Information Provided: Yes Advance Directives on File: No Patient : No : No Meds Allergies Allergy/AdvReac Type Severity Reaction Status Date / Time Sulfa (Sulfonamide Allergy Severe Hives Verified 03/26/25 11:34 Antibiotics) sulfamethoxazole (From Allergy Severe Hives Verified 03/26/25 11:34 Bactrim) trimethoprim (From Bactrim) Allergy Severe Hives Verified 03/26/25 11:34 naproxen (NAPROXEN) Allergy Intermediate ASTHMA Verified 03/26/25 11:34 Home Medications ?Medication ?Instructions ?Recorded ?Confirmed ?Last Taken ?Type multivitamin 1 tab PO DAILY 08/01/21 06/05/25 Unknown History albuterol sulfate 90 mcg/actuation 90 mcg inhalation Q4H PRN Wheezing 09/13/21 06/05/25 12/23/24 09:00 History aerosol inhaler albuterol sulfate 2.5 mg/3 mL 2.5 mg inhalation QID PRN 03/21/22 06/05/25 Unknown History (0.083 %) solution for nebulization Shortness Of Breath metformin 500 mg tablet,extended 500 mg PO DAILY 10/03/24 06/05/25 Unknown History release 24 hr oxybutynin chloride 10 mg 10 mg PO DAILY 10/03/24 06/05/25 12/23/24 09:00 History tablet,extended release 24 hr pravastatin 10 mg tablet 10 mg PO BEDTIME 10/03/24 06/05/25 Unknown History Exam Exam Date and Time: 07/06/25 Airway TM Dist: >3cm Neck ROM: Full Loose/Missing/Broken Teeth: Yes Heart: normal Lungs: normal Other: normal Assessment and Plan Assessment Anesthesia Assessment: Anesthesia Plan Discussed Final Anesthetic Review NPO: Yes ASA Class: II Final Preanesthetic Review: No Changes in Pt Med Stat, Meds/Allgs Chart Reviewed, Consent Obtained/Reviewed and Anes Risks/Benef Reviewed Patient Risk: Low Procedure Risk: Low Anesthetic Plan Anesthetic Plan: GA and MAC: Disposition: Standard PACU
[2025-07-07 10:17] VITALS: BP 131/89; PULSE 78; RESP 17; TEMP 36.6; O2SAT 99
[2025-07-07] MEDS: Lactated Ringers 1,000 ML 100 ML IVCONT (10:32)
[2025-07-07 10:34] LABS: Glucose, Whole Blood 133 mg/dL (60-115)
--- NOTE | 2025-07-07 11:52 | MHC.SHP ---
Pre-Procedural Eval Section A - 24 Hr Update-Section A only Date of Service: 07/07/25 The patient is an INPATIENT: No The patient has been examined within 24 hours of the surgical procedure. The History & Physical has been completed within 30 days and I have reviewed it.: Yes Section B - Complete if H&P > 30 days Chief Complaint: Uninhibited neuropathic bladder, Allergies: Allergies Allergy/AdvReac Type Severity Reaction Status Date / Time Sulfa (Sulfonamide Allergy Severe Hives Verified 03/26/25 11:34 Antibiotics) sulfamethoxazole (From Allergy Severe Hives Verified 03/26/25 11:34 Bactrim) trimethoprim (From Bactrim) Allergy Severe Hives Verified 03/26/25 11:34 naproxen (NAPROXEN) Allergy Intermediate ASTHMA Verified 03/26/25 11:34 Plan Diagnosis/Plan: Unchanged I have reviewed the history and physical and performed a pertinent physical examination on my patient. No changes have occurred unless specified. Cystoscopy bladder Botox injection 200 units. I have discussed risks to include hematuria, UTI, urinary retention, need to repeat procedure for sustained efficacy. Time Spent With Patient Time: Total time managing care of this patient today ____ minutes.
--- NOTE | 2025-07-07 11:53 | P.OP_ITS ---
Operative Note Operative Note Date of Service: 07/07/25 Narrative: PreOperative Diagnosis: Spastic neurogenic bladder Post Operative Diagnosis: Spastic neurogenic bladder Procedure: Cystoscopy with injection 200 units Botox intra detrusor muscle Surgeon: Dr Juni Simpson Anesthesia: General Procedure: After informed consent was verified the patient was brought to the operating room and placed in a supine position. Anesthesia was administered per protocol. Time out was done per protocol. Antibiotics confirmed. Cystoscopy performed with 22 Albanian cystoscope. Bladder was emptied of urine. Urine sent for culture. Bladder was refilled. The bladder was visualized, moderate trabeculations noted, the right and left ureteral orifices were visualized. Using 200 units of Botox mixed in 10 cc of normal saline; transurethral injections were placed into the posterior wall of the bladder. 0.5cc placed at each injection site. Injections were placed in a grid 5 across and 4 longitudinally. Injections were placed from the inferior to superior position. The bladder was drained, the cystoscope was removed. 2% lidocaine was passed transurethrally. The patient tolerated the procedure and was brought out of anesthesia and taken to the recovery room in stable condition. Complications: none EBL: minimal (<5 mL) Drains: None
[2025-07-07 13:10] VITALS: BP 107/70; PULSE 76; RESP 12; TEMP 36.1; O2SAT 97
[2025-07-07 13:15] VITALS: BP 113/73; PULSE 81; RESP 17; O2SAT 100
[2025-07-07 13:20] VITALS: BP 119/73; PULSE 91; RESP 20; TEMP 36.4; O2SAT 95
[2025-07-07 13:25] VITALS: BP 116/77; PULSE 91; RESP 17; O2SAT 96
[2025-07-07 13:40] VITALS: BP 136/89; PULSE 80; RESP 15; TEMP 36.4; O2SAT 95
== END 2025-07-07 14:35 | disposition home or self-care (01) ==
PROVIDERS: Anesthesiology; PCP Internal Medicine; Visit Provider Urology
PROC: 3E0K8GC Introduction of Other Therapeutic Substance into Genitourinary Tract, Via Natural or Artificial Opening Endoscopic (ICD-10-PCS; CPT 52287; principal; 2025-07-07 11:30)
DX: N31.0 Uninhibited neuropathic bladder, not elsewhere classified (principal); N31.8 Other neuromuscular dysfunction of bladder; N32.81 Overactive bladder; R39.15 Urgency of urination; E11.9 Type 2 diabetes mellitus without complications; G60.0 Hereditary motor and sensory neuropathy; J45.909 Unspecified asthma, uncomplicated; Z79.84 Long term (current) use of oral hypoglycemic drugs; Z79.899 Other long term (current) drug therapy; Z99.3 Dependence on wheelchair; Z88.2 Allergy status to sulfonamides; Z88.6 Allergy status to analgesic agent
CPT/HCPCS: 52287; 36415; 82947; 84702; 87086; J0585; J0690; J1100; J2003; J2250; J2371; J2405; J2704; J3010

== ENCOUNTER → 2025-07-07 09:33 | Outpatient (BNV) | payer MEDICARE, MEDICAID, SELFPAY | PROVIDERS: PCP Internal Medicine; Visit Provider Urology | DX: N31.8 Other neuromuscular dysfunction of bladder (principal) | CPT/HCPCS: 52287 ==

== ENCOUNTER → 2025-07-27 12:46 | Outpatient (BNVA) | payer MEDICARE, MEDICAID, SELFPAY | PROVIDERS: PCP Internal Medicine; Visit Provider Urology | DX: N31.8 Other neuromuscular dysfunction of bladder (principal); N32.81 Overactive bladder | CPT/HCPCS: 51798 ==